=== PATIENT | female | born 1995 | race American Indian/Alaskan Native ===

== ENCOUNTER 2016-08-18 20:29 | Emergency (ER) | payer MEDICAID ==
[2016-08-18 21:57] VITALS: BP 113/80
[2016-08-18 23:26] LABS: Bacteria,Urine 1+ /HPF (Negative); Bilirubin,Urine NEG (Negative); Blood,Urine NEG (Negative); Ketones,Urine NEG (Negative); Leukocyte Esterase,Urine LG (Negative); Nitrite,Urine NEG (Negative); Protein,Urine <15 mg/dL mg/dL (Negative); Urobilinogen,Urine < 2.0 mg/dL (<2.0)
--- NOTE | 2016-08-21 18:37 | ED Elopement Review ---
ED Pt Elopement review - Results review Lab results: Laboratory Tests 08/18/16 Unknown Urine Color Yellow Urine Turbidity Clear Urine pH 7.0 Ur Specific [place] 1.008 Urine Protein <15 mg/dl Urine Glucose (UA) Neg Urine Ketones Neg Urine Blood Neg Urine Nitrite Neg Urine Bilirubin Neg Urine Urobilinogen < 2.0 Ur Leukocyte Esterase Lg Urine WBC (Auto) 25.0 H Urine RBC (Auto) 4.0 U Epithel Cells (Auto) 5.0 Urine Bacteria (Auto) 1+ - Call Back decision Pt Call Back Decision: Pt to F/U with PMD
== END 2016-08-19 10:20 | disposition left against medical advice (07) ==
LOC: ED 20:29
DX: R10.9 Unspecified abdominal pain (principal); Z53.21 Procedure and treatment not carried out due to patient leaving prior to being seen by health care provider
CPT/HCPCS: 81001

== ENCOUNTER 2016-08-29 19:46 | Outpatient (CLI) | payer MEDICAID ==
[2016-08-29] MEDS ORDERED: LACTATED RINGERS 500 ML IV ONE (20:08)
[2016-08-29 20:22] LABS: Bilirubin,Urine NEG (Negative); Blood,Urine NEG (Negative); Ketones,Urine 80 mg/dL (Negative); Leukocyte Esterase,Urine NEG (Negative); Mucus,Urine 1+ /HPF; Nitrite,Urine NEG (Negative); Protein,Urine <15 mg/dL mg/dL (Negative); Urobilinogen,Urine < 2.0 mg/dL (<2.0)
[2016-08-29 21:16] VITALS: BP 109/65
== END 2016-08-29 23:06 | disposition home or self-care (01) ==
LOC: TRG 19:46
PROVIDERS: ATTEND Obstetrics & Gynecology
DX: Z03.89 Encounter for observation for other suspected diseases and conditions ruled out (principal); Z3A.22 22 weeks gestation of pregnancy
CPT/HCPCS: 81001; 96360; J7120

== ENCOUNTER 2016-11-13 10:52 | Inpatient (IN) | payer MEDICAID ==
[2016-11-13 11:46] LABS: Hematocrit 31.1 % (30.3-42.9); Hemoglobin 10.9 gm/dl (10.1-14.3); Mean Corpuscular HGB Conc 35 % (30-34); Mean Corpuscular Hemoglobin 31 pg (28-32); Mean Corpuscular Volume 89 fl (79-97); Platelet Count 125 K/mm3 (140-440); Red Blood Count 3.48 M/mm3 (3.65-5.03)
[2016-11-13 11:51] LABS: Bacteria,Urine 1+ /HPF (Negative); Bilirubin,Urine NEG (Negative); Blood,Urine SM (Negative); Ketones,Urine NEG (Negative); Leukocyte Esterase,Urine MOD (Negative); Mucus,Urine FEW /HPF; Nitrite,Urine NEG (Negative); Urobilinogen,Urine < 2.0 mg/dL (<2.0)
[2016-11-13 11:59] LABS: Protein,Urine >500 mg/dL (Negative)
[2016-11-13 12:10] LABS: Alanine Aminotransferase 7 units/L (7-56); Lactate Dehydrogenase 258 units/L (91-180); Uric Acid 9.2 mg/dL (3.5-7.6)
[2016-11-13] MEDS ORDERED: COLACE PO PRN (12:36)
--- NOTE | 2016-11-13 12:56 | History and Physical Report ---
History of Present Illness Date of examination: 11/13/16 Chief complaint: Elevated BP's in the office History of present illness: Pt is a 21yo BF EDC 01/02/17; EGA 32 6/7 weeks presents from [facility] for evaluation of suspected Preeclampsia. She received care at [facility] since 14 weeks and course has been unremarkable except for elevated BP's today in the office. She denies current headaches or blurred vision. records are available, and GBS is unknown. Past History Past Medical History: no pertinent history Past Surgical History: no surgical history Family/Genetic History: none Social history: no significant social history, single - Obstetrical History Expected Date of Delivery: 01/02/17 Actual Gestation: 32 Week(s) 6 Day(s) : 1 Medications and Allergies Allergies Allergy/AdvReac Type Severity Reaction Status Date / Time No Known Allergies Allergy Verified 08/18/16 21:57 Home Medications Medication Instructions Recorded Confirmed Last Taken Type Vitamin 1 tab PO DAILY 11/13/16 11/13/16 Unknown History Active Meds: Active Medications Acetaminophen (Tylenol) 650 mg PO Q4H PRN PRN Reason: Pain MILD(1-3)/Fever >100.5/SMITH Betamethasone Acet/Betameth SodPhos (Celestone Soluspan) 12 mg IM Q24H NELIA Stop: 11/14/16 13:01 Docusate Sodium (Colace) 100 mg PO Q12H PRN PRN Reason: Constipation Hydralazine HCl (Apresoline) 10 mg IV Q30MIN PRN PRN Reason: Blood Pressure>160/90 Multivitamins/Iron/Calcium ( Vitamin) 1 each PO QDAY NELIA Ondansetron HCl (Zofran) 4 mg IV Q6H PRN PRN Reason: Nausea And Vomiting Review of Systems All systems: negative - Vital Signs Vital signs: Vital Signs Pulse BP 63 169/112 11/13/16 11:13 11/13/16 11:13 Temp Pulse Resp BP Pulse Ox 66 138/95 93 11/13/16 12:30 11/13/16 12:30 11/13/16 12:14 - Physical Exam Breasts: Positive: deferred Cardiovascular: Regular rate Lungs: Positive: Clear to auscultation Abdomen: Positive: normal appearance Genitourinary (Female): Positive: normal external genitalia Uterus: Positive: enlarged Extremities: Positive: edema - Obstetrical FHR: category 1 Uterine Contraction Monitor Mode: External Uterine Contraction Pattern: Regular Uterine Tone Measurement Phase: Contraction Uterine Contraction Intensity: Mild Results Result Diagrams: 11/13/16 11:05 11/13/16 11:05 Abnormal lab results 11/13/16 11/13/16 11/13/16 Range/Units 11:05 11:05 11:05 RBC 3.48 L (3.65-5.03) M/mm3 MCHC 35 H (30-34) % RDW 12.0 L (13.2-15.2) % Plt Count 125 L (140-440) K/mm3 Uric Acid 9.2 H (3.5-7.6) mg/dL Lactate Dehydrogenase 258 H (91-180) units/L Urine WBC (Auto) 7.0 H (0.0-6.0) /HPF All other labs normal. Ultrasound: report reviewed ([facility] 03/03) Assessment and Plan - Patient Problems (1) 32 weeks gestation of Onset Date: 11/13/16 Current Visit: Yes Status: Acute Plan to address problem: A: IUP @ 32 6/7 weeks Suspect Pre-eclampsia contractions P: Admit to L&D for Observation Will obtain PIH labs, 24hr urine for protein Begin Magnesium sulfate for tocolysis Begin steroids (2) Pre-eclampsia Onset Date: 11/13/16 Current Visit: Yes Status: Acute Qualifiers: Trimester: third trimester Qualified Code(s): O14.93 - Unspecified pre- eclampsia, third trimester
[2016-11-13] MEDS: APRESOLINE IV PRN (13:20)
[2016-11-13] MEDS: CELESTONE SOLUSPAN IM SCH (13:25)
[2016-11-13] MEDS ORDERED: MAGNESIUM SULFATE 4GM/100ML 4 GM/100 ML BAG IV ONE (13:58)
[2016-11-13] MEDS ORDERED: MAGNESIUM SULFATE 40GM/1000ML 40 GM/1,000 ML BAG IV SCH (14:00)
[2016-11-13] MEDS ORDERED: LACTATED RINGERS 1,000 ML ONE (15:10)
--- NOTE | 2016-11-13 15:25 | Ultrasound Report ---
BIOPHYSICAL PROFILE: INDICATION: Preeclampsia. COMPARISON: None similar at this institution. TECHNIQUE: Transabdominal ultrasound with Doppler interrogation. 2 - breathing movements 2 - movements 2 - posture and tone 2 - Qualitative amniotic fluid volume 8 - TOTAL SCORE OF POSSIBLE 8 Heart Rate (bpm) 137
[2016-11-13] MEDS ORDERED: SUBLIMAZE IV PRN (20:52)
[2016-11-14] MEDS: ZOFRAN IV PRN ×2 (02:47→08:38)
[2016-11-14] MEDS: LACTATED RINGERS 1,000 ML IV SCH ×3 (04:26→22:07)
--- NOTE | 2016-11-14 08:05 | Admit Criteria Form ---
Admission Criteria Documentation: HYPERTENSIVE DISORDERS OF Clinical Indications for Admission to Inpatient Care (Place 'X' for any and all applicable criteria): Admission is indicated for ANY ONE of the following (1)(2)(3)(4)(5): [ ]I. Eclampsia[A][B] [ ]II. Preeclampsia with severe features (ie, severe preeclampsia) indicated by ANY ONE of the following[B][C]: [ ]a) SBP greater than or equal to 160 mm Hg or DBP greater than or equal to 110 mm Hg on 2 occasions at least 4 hours apart while the patient is at bed rest (unless antihypertensive therapy is initiated before this time) [ ]b) Platelet count less than 100,000/mm3 (100 x109/L) [ ]c) Impaired liver function as indicated by ANY ONE of the following: [ ]i. Elevation of liver enzymes (eg, SGOT, SGPT) to twice normal concentration [ ]ii. Severe persistent right upper quadrant or epigastric pain unresponsive to medication and not accounted for by alternative diagnosis [ ]d) Progressive renal insufficiency indicated by ANY ONE of the following: [ ]i. Serum creatinine concentration greater than 1.1 mg/dL (97 micromoles/L) [ ]ii. Doubling (from baseline) of serum creatinine concentration in the absence of other renal disease [ ]e) Pulmonary edema [X ]f) Cerebral or visual symptoms (eg, headache, Altered mental status, changes in vision) [ ]III. Delivery planned due to nonsevere preeclampsia as indicated by ALL of the following: [ ]a) Nonsevere preeclampsia present as indicated by ALL of the following: [ ]i. Woman at 20 or more weeks' gestation [ ]ii. New-onset SBP greater than or equal to 140 mm Hg but less than 160 mm Hg or DBP greater than or equal to 90 mm Hg but less than 110 mm Hg on 2 occasions at least 4 hours apart [ ]iii. Proteinuria present as indicated by ANY ONE of the following: [ ]A. Urinary protein excretion greater than or equal to 300 mg per 24-hour collection (or this amount extrapolated from a shorter timed collection) [ ]B. Protein/creatinine ratio greater than or equal to 0.3 (measured in mg/dL) [ ]b) Delivery indicated due to ANY ONE of the following: [ ]i. Gestational age of 37 0/7 weeks or more [ ]ii. Gestational age of 34 0/7 weeks to 36 6/7 weeks and ANY ONE of the following: [ ]A. Progressive labor or rupture of membranes [ ]B. Abnormal biophysical profile [ ]C. Suspected abruptio placentae [ ]D. Ultrasound estimate of weight less than 5th percentile [ ]E. Other indication for delivery [ ]IV. Delivery planned due to gestational hypertension[D] because of ANY ONE of the following: [ ]a) Delivery indicated because gestational age of 37 0/7 weeks or more has been reached [ ]b) Gestational age of 34 0/7 weeks to 36 6/7 weeks for which delivery is indicated because of ANY ONE of the following: [ ]i. Progressive labor or rupture of membranes [ ]ii. Abnormal biophysical profile [ ]iii. Suspected abruptio placentae [ ]iv. Ultrasound estimate of weight less than 5th percentile [ ]v. Other indication for delivery [ ]V. Hypertension of any category[E] during with acute end organ damage as indicated by ANY ONE of the following: [ ]a) Hypertensive encephalopathy (eg, Altered mental status that is severe or persistent )(11) [ ]b) Cerebral infarction [ ]c) Intracranial hemorrhage [ ]d) Myocardial ischemia or infarction [ ]e) Pulmonary edema [ ]f) Aortic dissection [ ]g) Seizure [ ]h) Papilledema [ ]i) Microangiopathic hemolytic anemia [ ]j) Visual loss [ ]k) Acute renal failure [ ]) Hypertension during with evidence of compromise as indicated by ANY ONE of the following: [ ]a) Abnormal heart tones [ ]b) Abnormal stress test [ ]c) Abnormal biophysical profile [ X]VII) patient requires inpatient control of blood pressure indicated by (see Hypertensive Disorders of : Observation Care [facility] guideline as appropriate) ALL of the following: [X ]a) SBP is greater than or equal to 160 mm Hg or DBP is greater than or equal to 105 mm Hg [ X]b) Blood pressure cannot be reduced below these levels with outpatient or observation care treatment (eg, oral medications not effective) Extended stay beyond goal length of stay may be needed for : [ ]a) Eclampsia [ ]b) Ongoing compromise [ ]c) Complications of hypertensive disorders of [ ]d) Active comorbidities (eg, heart failure, poorly controlled diabetes, renal insufficiency) [ ]e) Persistent hypertension [ ]f) Delivery planned The original [facility] content created by [facility] has been revised. The portions of the content which have been revised are identified through the use of italic text or in bold, and [facility] has neither reviewed nor approved the modified material. All other unmodified content is copyright [facility]. Please see references footnoted in the original [facility] edition 2016. Admission Criteria Met: Yes
[2016-11-14] MEDS: TYLENOL PO PRN ×2 (09:05→23:30)
[2016-11-14] MEDS: APRESOLINE IV PRN ×2 (10:08→20:58)
--- NOTE | 2016-11-14 12:09 | Progress Note ---
Assessment and Plan - Patient Problems (1) 32 weeks gestation of Onset Date: 11/13/16 Current Visit: Yes Status: Acute (2) Pre-eclampsia Onset Date: 11/13/16 Current Visit: Yes Status: Acute Qualifiers: Trimester: third trimester Qualified Code(s): O14.93 - Unspecified pre- eclampsia, third trimester (3) 33 weeks gestation of Onset Date: 11/14/16 Current Visit: Yes Status: Acute Plan to address problem: A: IUP @ 33 0/7 weeks Preeclampsia - BP's improved on IV hydralazine and magnesium sulfate P: Continue present management Awaiting 24hr urine collection Will D/C magnesium sulfate for now Awaiting APA consultation Repeat labs Subjective - Subjective Date of service: 11/14/16 Principal diagnosis: IUP @ 33 0/7 weeks; Preeclampsia Interval history: Pt is a 21yo BF EDC 01/02/17; EGA 33 0/7 weeks, being evaluated for Preeclampsia, and currently on magnesium sulfate 2gm/hr. She denies headaches, blurred vision or SOB. Patient reports: movement normal, contractions, no new complaints, no loss of fluid, no vaginal bleeding Objective - Vital Signs Vital Signs: Vital Signs - 12hr 11/14/16 11/14/16 11/14/16 00:09 00:14 00:19 Temperature Pulse Rate 85 77 76 Pulse Rate [ From Monitor] Respiratory Rate Blood Pressure Blood Pressure [Right Arm] O2 Sat by Pulse 100 100 100 Oximetry 11/14/16 11/14/16 11/14/16 00:24 00:29 00:34 Temperature Pulse Rate 80 79 79 Pulse Rate [ From Monitor] Respiratory Rate Blood Pressure Blood Pressure [Right Arm] O2 Sat by Pulse 100 100 100 Oximetry 11/14/16 11/14/16 11/14/16 00:39 00:44 00:49 Temperature Pulse Rate 86 80 81 Pulse Rate [ From Monitor] Respiratory Rate Blood Pressure Blood Pressure [Right Arm] O2 Sat by Pulse 100 100 100 Oximetry 11/14/16 11/14/16 11/14/16 00:54 00:59 01:04 Temperature Pulse Rate 81 82 84 Pulse Rate [ From Monitor] Respiratory Rate Blood Pressure Blood Pressure [Right Arm] O2 Sat by Pulse 100 100 100 Oximetry 11/14/16 11/14/16 11/14/16 01:05 01:09 01:14 Temperature 98.4 F Pulse Rate 83 85 Pulse Rate [ From Monitor] Respiratory 20 Rate Blood Pressure Blood Pressure [Right Arm] O2 Sat by Pulse 99 99 Oximetry 11/14/16 11/14/16 11/14/16 01:19 01:24 01:29 Temperature Pulse Rate 81 87 91 H Pulse Rate [ From Monitor] Respiratory Rate Blood Pressure Blood Pressure [Right Arm] O2 Sat by Pulse 99 99 100 Oximetry 11/14/16 11/14/16 11/14/16 01:34 01:39 01:44 Temperature Pulse Rate 94 H 91 H 95 H Pulse Rate [ From Monitor] Respiratory Rate Blood Pressure Blood Pressure [Right Arm] O2 Sat by Pulse 100 100 100 Oximetry 11/14/16 11/14/16 11/14/16 01:49 01:54 01:59 Temperature Pulse Rate 96 H 93 H 96 H Pulse Rate [ From Monitor] Respiratory Rate Blood Pressure Blood Pressure [Right Arm] O2 Sat by Pulse 99 99 99 Oximetry 11/14/16 11/14/16 11/14/16 02:04 02:09 02:14 Temperature Pulse Rate 90 93 H 97 H Pulse Rate [ From Monitor] Respiratory Rate Blood Pressure Blood Pressure [Right Arm] O2 Sat by Pulse 98 97 97 Oximetry 11/14/16 11/14/16 11/14/16 02:19 02:24 02:29 Temperature Pulse Rate 94 H 92 H 93 H Pulse Rate [ From Monitor] Respiratory Rate Blood Pressure Blood Pressure [Right Arm] O2 Sat by Pulse 97 98 97 Oximetry 11/14/16 11/14/16 11/14/16 02:34 02:39 02:44 Temperature Pulse Rate 111 H 100 H 90 Pulse Rate [ From Monitor] Respiratory Rate Blood Pressure Blood Pressure [Right Arm] O2 Sat by Pulse 96 97 97 Oximetry 11/14/16 11/14/16 11/14/16 02:47 02:49 02:54 Temperature Pulse Rate 95 H 93 H 88 Pulse Rate [ From Monitor] Respiratory Rate Blood Pressure 135/84 Blood Pressure [Right Arm] O2 Sat by Pulse 98 98 Oximetry 11/14/16 11/14/16 11/14/16 02:59 03:04 03:09 Temperature Pulse Rate 89 93 H 93 H Pulse Rate [ From Monitor] Respiratory Rate Blood Pressure Blood Pressure [Right Arm] O2 Sat by Pulse 98 97 97 Oximetry 11/14/16 11/14/16 11/14/16 03:14 03:19 03:24 Temperature Pulse Rate 89 87 85 Pulse Rate [ From Monitor] Respiratory Rate Blood Pressure Blood Pressure [Right Arm] O2 Sat by Pulse 97 97 98 Oximetry 11/14/16 11/14/16 11/14/16 03:29 03:34 03:39 Temperature Pulse Rate 85 82 83 Pulse Rate [ From Monitor] Respiratory Rate Blood Pressure Blood Pressure [Right Arm] O2 Sat by Pulse 99 99 99 Oximetry 11/14/16 11/14/16 11/14/16 03:44 03:48 03:49 Temperature Pulse Rate 91 H 96 H 86 Pulse Rate [ From Monitor] Respiratory Rate Blood Pressure 121/82 Blood Pressure [Right Arm] O2 Sat by Pulse 98 98 Oximetry 11/14/16 11/14/16 11/14/16 03:54 03:59 04:04 Temperature Pulse Rate 83 84 99 H Pulse Rate [ From Monitor] Respiratory Rate Blood Pressure Blood Pressure [Right Arm] O2 Sat by Pulse 99 98 97 Oximetry 11/14/16 11/14/16 11/14/16 04:09 04:14 04:19 Temperature Pulse Rate 98 H 91 H 92 H Pulse Rate [ From Monitor] Respiratory Rate Blood Pressure Blood Pressure [Right Arm] O2 Sat by Pulse 96 100 99 Oximetry 11/14/16 11/14/16 11/14/16 04:24 04:29 04:34 Temperature Pulse Rate 89 91 H 91 H Pulse Rate [ From Monitor] Respiratory Rate Blood Pressure Blood Pressure [Right Arm] O2 Sat by Pulse 99 99 98 Oximetry 11/14/16 11/14/16 11/14/16 04:39 04:44 04:48 Temperature Pulse Rate 88 85 90 Pulse Rate [ From Monitor] Respiratory Rate Blood Pressure 135/88 Blood Pressure [Right Arm] O2 Sat by Pulse 97 97 Oximetry 11/14/16 11/14/16 11/14/16 04:49 04:54 04:59 Temperature Pulse Rate 93 H 88 104 H Pulse Rate [ From Monitor] Respiratory Rate Blood Pressure Blood Pressure [Right Arm] O2 Sat by Pulse 98 97 98 Oximetry 11/14/16 11/14/16 11/14/16 05:00 05:04 05:09 Temperature 96.7 F L Pulse Rate 85 84 Pulse Rate [ From Monitor] Respiratory 18 Rate Blood Pressure Blood Pressure [Right Arm] O2 Sat by Pulse 99 99 Oximetry 11/14/16 11/14/16 11/14/16 05:14 05:19 05:24 Temperature Pulse Rate 82 87 83 Pulse Rate [ From Monitor] Respiratory Rate Blood Pressure Blood Pressure [Right Arm] O2 Sat by Pulse 99 99 99 Oximetry 11/14/16 11/14/16 11/14/16 05:29 05:34 05:39 Temperature Pulse Rate 81 85 83 Pulse Rate [ From Monitor] Respiratory Rate Blood Pressure Blood Pressure [Right Arm] O2 Sat by Pulse 100 99 99 Oximetry 11/14/16 11/14/16 11/14/16 05:44 05:48 05:49 Temperature Pulse Rate 93 H 93 H 86 Pulse Rate [ From Monitor] Respiratory Rate Blood Pressure 138/100 Blood Pressure [Right Arm] O2 Sat by Pulse 100 99 Oximetry 11/14/16 11/14/16 11/14/16 05:54 05:58 05:59 Temperature Pulse Rate 88 100 H 99 H Pulse Rate [ From Monitor] Respiratory Rate Blood Pressure Blood Pressure [Right Arm] O2 Sat by Pulse 98 93 98 Oximetry 11/14/16 11/14/16 11/14/16 06:04 06:09 06:14 Temperature Pulse Rate 109 H 98 H 98 H Pulse Rate [ From Monitor] Respiratory Rate Blood Pressure Blood Pressure [Right Arm] O2 Sat by Pulse 98 97 97 Oximetry 11/14/16 11/14/16 11/14/16 06:19 06:24 06:29 Temperature Pulse Rate 96 H 98 H 96 H Pulse Rate [ From Monitor] Respiratory Rate Blood Pressure Blood Pressure [Right Arm] O2 Sat by Pulse 98 97 95 Oximetry 11/14/16 11/14/16 11/14/16 06:34 06:38 06:39 Temperature Pulse Rate 91 H 100 H 99 H Pulse Rate [ From Monitor] Respiratory Rate Blood Pressure Blood Pressure [Right Arm] O2 Sat by Pulse 97 94 97 Oximetry 11/14/16 11/14/16 11/14/16 06:44 06:48 06:49 Temperature Pulse Rate 96 H 95 H 106 H Pulse Rate [ From Monitor] Respiratory Rate Blood Pressure 136/93 Blood Pressure [Right Arm] O2 Sat by Pulse 97 98 Oximetry 11/14/16 11/14/16 11/14/16 06:54 06:59 07:03 Temperature Pulse Rate 99 H 107 H 96 H Pulse Rate [ From Monitor] Respiratory Rate Blood Pressure Blood Pressure [Right Arm] O2 Sat by Pulse 96 97 94 Oximetry 11/14/16 11/14/16 11/14/16 07:04 07:08 07:09 Temperature Pulse Rate 106 H 94 H 98 H Pulse Rate [ From Monitor] Respiratory Rate Blood Pressure Blood Pressure [Right Arm] O2 Sat by Pulse 95 94 95 Oximetry 11/14/16 11/14/16 11/14/16 07:13 07:14 07:19 Temperature Pulse Rate 94 H 95 H 114 H Pulse Rate [ From Monitor] Respiratory Rate Blood Pressure Blood Pressure [Right Arm] O2 Sat by Pulse 94 95 98 Oximetry 11/14/16 11/14/16 11/14/16 07:22 07:24 07:29 Temperature Pulse Rate 96 H 98 H 98 H Pulse Rate [ From Monitor] Respiratory Rate Blood Pressure Blood Pressure [Right Arm] O2 Sat by Pulse 92 95 94 Oximetry 11/14/16 11/14/16 11/14/16 07:34 07:39 07:44 Temperature Pulse Rate 93 H 93 H 94 H Pulse Rate [ From Monitor] Respiratory Rate Blood Pressure Blood Pressure [Right Arm] O2 Sat by Pulse 95 96 96 Oximetry 11/14/16 11/14/16 11/14/16 07:48 07:49 07:54 Temperature Pulse Rate 100 H 97 H 92 H Pulse Rate [ From Monitor] Respiratory Rate Blood Pressure 138/90 Blood Pressure [Right Arm] O2 Sat by Pulse 95 95 Oximetry 11/14/16 11/14/16 11/14/16 07:55 07:59 08:01 Temperature Pulse Rate 95 H 95 H 97 H Pulse Rate [ From Monitor] Respiratory Rate Blood Pressure Blood Pressure [Right Arm] O2 Sat by Pulse 94 95 94 Oximetry 11/14/16 11/14/16 11/14/16 08:04 08:09 08:14 Temperature Pulse Rate 92 H 90 89 Pulse Rate [ From Monitor] Respiratory Rate Blood Pressure Blood Pressure [Right Arm] O2 Sat by Pulse 95 96 96 Oximetry 11/14/16 11/14/16 11/14/16 08:19 08:23 08:24 Temperature Pulse Rate 103 H 98 H 96 H Pulse Rate [ From Monitor] Respiratory Rate Blood Pressure 139/99 Blood Pressure [Right Arm] O2 Sat by Pulse 99 98 Oximetry 11/14/16 11/14/16 11/14/16 08:26 08:29 08:34 Temperature 98.0 F Pulse Rate 98 H 98 H Pulse Rate [ 94 H From Monitor] Respiratory 18 Rate Blood Pressure Blood Pressure 139/99 [Right Arm] O2 Sat by Pulse 98 99 98 Oximetry 11/14/16 11/14/16 11/14/16 08:39 08:44 08:48 Temperature Pulse Rate 99 H 101 H 102 H Pulse Rate [ From Monitor] Respiratory Rate Blood Pressure 141/98 Blood Pressure [Right Arm] O2 Sat by Pulse 98 99 Oximetry 11/14/16 11/14/16 11/14/16 08:49 08:54 08:59 Temperature Pulse Rate 102 H 95 H 101 H Pulse Rate [ From Monitor] Respiratory Rate Blood Pressure Blood Pressure [Right Arm] O2 Sat by Pulse 99 98 98 Oximetry 11/14/16 11/14/16 11/14/16 09:04 09:05 09:09 Temperature Pulse Rate 110 H 96 H Pulse Rate [ From Monitor] Respiratory 18 Rate Blood Pressure Blood Pressure [Right Arm] O2 Sat by Pulse 98 99 Oximetry 11/14/16 11/14/16 11/14/16 09:14 09:19 09:24 Temperature Pulse Rate 95 H 94 H 93 H Pulse Rate [ From Monitor] Respiratory Rate Blood Pressure Blood Pressure [Right Arm] O2 Sat by Pulse 99 100 100 Oximetry 11/14/16 11/14/16 11/14/16 09:29 09:34 09:39 Temperature Pulse Rate 87 90 90 Pulse Rate [ From Monitor] Respiratory Rate Blood Pressure Blood Pressure [Right Arm] O2 Sat by Pulse 100 100 99 Oximetry 11/14/16 11/14/16 11/14/16 09:44 09:48 09:49 Temperature Pulse Rate 88 88 94 H Pulse Rate [ From Monitor] Respiratory Rate Blood Pressure 152/101 Blood Pressure [Right Arm] O2 Sat by Pulse 99 97 Oximetry 11/14/16 11/14/16 11/14/16 09:54 09:59 10:04 Temperature Pulse Rate 92 H 88 90 Pulse Rate [ From Monitor] Respiratory Rate Blood Pressure Blood Pressure [Right Arm] O2 Sat by Pulse 98 100 100 Oximetry 11/14/16 11/14/16 11/14/16 10:08 10:09 10:14 Temperature Pulse Rate 89 92 H 94 H Pulse Rate [ From Monitor] Respiratory Rate Blood Pressure 152/101 Blood Pressure [Right Arm] O2 Sat by Pulse 100 100 Oximetry 11/14/16 11/14/16 11/14/16 10:19 10:24 10:29 Temperature Pulse Rate 101 H 100 H 101 H Pulse Rate [ From Monitor] Respiratory Rate Blood Pressure Blood Pressure [Right Arm] O2 Sat by Pulse 99 100 100 Oximetry 11/14/16 11/14/16 11/14/16 10:34 10:39 10:44 Temperature Pulse Rate 100 H 106 H 106 H Pulse Rate [ From Monitor] Respiratory Rate Blood Pressure Blood Pressure [Right Arm] O2 Sat by Pulse 100 100 100 Oximetry 11/14/16 11/14/16 11/14/16 10:49 10:54 10:59 Temperature Pulse Rate 102 H 105 H 105 H Pulse Rate [ From Monitor] Respiratory Rate Blood Pressure 136/84 Blood Pressure [Right Arm] O2 Sat by Pulse 99 100 100 Oximetry 11/14/16 11/14/16 11/14/16 11:04 11:09 11:14 Temperature Pulse Rate 104 H 103 H 113 H Pulse Rate [ From Monitor] Respiratory Rate Blood Pressure Blood Pressure [Right Arm] O2 Sat by Pulse 99 100 100 Oximetry 11/14/16 11/14/16 11/14/16 11:19 11:24 11:29 Temperature Pulse Rate 100 H 100 H 106 H Pulse Rate [ From Monitor] Respiratory Rate Blood Pressure Blood Pressure [Right Arm] O2 Sat by Pulse 100 100 99 Oximetry 11/14/16 11/14/16 11/14/16 11:34 11:39 11:44 Temperature Pulse Rate 107 H 119 H 113 H Pulse Rate [ From Monitor] Respiratory Rate Blood Pressure Blood Pressure [Right Arm] O2 Sat by Pulse 99 100 99 Oximetry 11/14/16 11/14/16 11/14/16 11:48 11:49 11:54 Temperature Pulse Rate 112 H 107 H 102 H Pulse Rate [ From Monitor] Respiratory Rate Blood Pressure 137/90 Blood Pressure [Right Arm] O2 Sat by Pulse 99 98 Oximetry 11/14/16 11/14/16 11/14/16 11:59 12:04 12:05 Temperature Pulse Rate 105 H 111 H 109 H Pulse Rate [ From Monitor] Respiratory Rate Blood Pressure 132/82 Blood Pressure [Right Arm] O2 Sat by Pulse 99 99 Oximetry - Exam Breasts: deferred Cardiovascular: Regular rate Lungs: Clear to auscultation Abdomen: Present: normal appearance, soft Uterus: Present: normal FHR: category 1 Uterine Contraction Monitor Mode: External - Labs Labs: Abnormal Labs 11/13/16 11/13/16 11/13/16 11:05 11:05 11:05 RBC 3.48 L MCHC 35 H RDW 12.0 L Plt Count 125 L Uric Acid 9.2 H Magnesium Lactate Dehydrogenase 258 H Urine WBC (Auto) 7.0 H 11/14/16 04:10 RBC MCHC RDW Plt Count Uric Acid Magnesium 9.2 H Lactate Dehydrogenase Urine WBC (Auto) Laboratory Results - last 24 hr 11/13/16 11/13/16 11/14/16 11:05 11:05 04:10 Creatinine 0.9 Estimated GFR > 60 Uric Acid 9.2 H Magnesium 9.2 H AST 15 ALT 7 Lactate Dehydrogenase 258 H Blood Type A POSITIVE Antibody Screen Negative
[2016-11-14] MEDS: CELESTONE SOLUSPAN IM SCH (13:56)
[2016-11-14 14:56] LABS: Total Protein 24 Hour,Urine TNR (2-200)
[2016-11-14 14:57] LABS: Total Protein 24 Hour,Urine 4042.5 (2-200)
[2016-11-14 17:48] LABS: Hematocrit 31.5 % (30.3-42.9); Hemoglobin 10.8 gm/dl (10.1-14.3); Mean Corpuscular HGB Conc 34 % (30-34); Mean Corpuscular Hemoglobin 31 pg (28-32); Mean Corpuscular Volume 90 fl (79-97); Platelet Count 145 K/mm3 (140-440); Red Blood Count 3.49 M/mm3 (3.65-5.03); Red Cell Distribution Width 12.7 % (13.2-15.2); White Blood Count 17.7 K/mm3 (4.5-11.0)
[2016-11-14 18:15] LABS: Alanine Aminotransferase 6 units/L (7-56)
[2016-11-14] MEDS ORDERED: CERVIDIL VG ONE (19:47)
[2016-11-14] MEDS ORDERED: STADOL IV PRN (19:48)
[2016-11-14] MEDS ORDERED: MAGNESIUM SULFATE 40GM/1000ML 40 GM/1,000 ML BAG IV SCH (20:00)
[2016-11-15] MEDS: ZOFRAN IV PRN (03:17)
[2016-11-15] MEDS ORDERED: POLYCILLIN/NS 2 GM/100 ML 2 GM/100 ML BAG IV ONE (04:41)
[2016-11-15] MEDS: POLYCILLIN/NS 1 GM/50 ML 1 GM/50 ML BAG IV SCH ×4 (09:15→22:13)
[2016-11-15] MEDS: LACTATED RINGERS 1,000 ML IV SCH ×2 (09:16→22:14)
--- NOTE | 2016-11-15 10:21 | Progress Note ---
Assessment and Plan - Patient Problems (1) 32 weeks gestation of Onset Date: 11/13/16 Current Visit: Yes Status: Acute Plan to address problem: A: IUP @ 33 1/7 weeks Pre-eclampsia - currently on magnesium sulfate 1gm/hr P: Will continue with Cervidel induction of labor (2) Pre-eclampsia Onset Date: 11/13/16 Current Visit: Yes Status: Acute Qualifiers: Trimester: third trimester Qualified Code(s): O14.93 - Unspecified pre- eclampsia, third trimester (3) 33 weeks gestation of Onset Date: 11/14/16 Current Visit: Yes Status: Acute Subjective - Subjective Date of service: 11/15/16 Principal diagnosis: IUP @ 33 1/7 weeks; Preeclampsia Interval history: Pt is a 21yo BF EDC 01/02/17; EGA 33 1/7 weeks, being induced for Preeclampsia. She received cervidel last night, and currently on magnesium sulfate 1gm/hr. She denies headaches, blurred vision or SOB. Patient reports: movement normal, contractions, no new complaints, no loss of fluid, no vaginal bleeding Objective - Vital Signs Vital Signs: Vital Signs - 12hr 11/14/16 11/14/16 11/14/16 22:19 22:24 22:29 Temperature Pulse Rate 109 H 106 H 107 H Pulse Rate [ From Monitor] Respiratory Rate Blood Pressure Blood Pressure [Right Arm] O2 Sat by Pulse 97 97 97 Oximetry 11/14/16 11/14/16 11/14/16 22:34 22:39 22:44 Temperature Pulse Rate 110 H 114 H 113 H Pulse Rate [ From Monitor] Respiratory Rate Blood Pressure Blood Pressure [Right Arm] O2 Sat by Pulse 97 97 96 Oximetry 11/14/16 11/14/16 11/14/16 22:49 22:54 22:59 Temperature Pulse Rate 108 H 108 H 111 H Pulse Rate [ From Monitor] Respiratory Rate Blood Pressure Blood Pressure [Right Arm] O2 Sat by Pulse 96 96 96 Oximetry 11/14/16 11/14/16 11/14/16 23:00 23:04 23:09 Temperature Pulse Rate 111 H 107 H 108 H Pulse Rate [ From Monitor] Respiratory Rate Blood Pressure 131/84 Blood Pressure [Right Arm] O2 Sat by Pulse 95 96 Oximetry 11/14/16 11/14/16 11/14/16 23:11 23:14 23:19 Temperature Pulse Rate 109 H 113 H 112 H Pulse Rate [ From Monitor] Respiratory Rate Blood Pressure Blood Pressure [Right Arm] O2 Sat by Pulse 94 97 96 Oximetry 11/14/16 11/14/16 11/14/16 23:24 23:29 23:30 Temperature Pulse Rate 120 H 117 H Pulse Rate [ From Monitor] Respiratory 20 Rate Blood Pressure 121/76 Blood Pressure [Right Arm] O2 Sat by Pulse 97 97 Oximetry 11/14/16 11/14/16 11/14/16 23:34 23:36 23:39 Temperature 99.7 F H Pulse Rate 108 H 116 H Pulse Rate [ From Monitor] Respiratory 20 Rate Blood Pressure Blood Pressure [Right Arm] O2 Sat by Pulse 96 94 Oximetry 11/14/16 11/14/16 11/14/16 23:43 23:44 23:49 Temperature Pulse Rate 114 H 110 H 107 H Pulse Rate [ From Monitor] Respiratory Rate Blood Pressure Blood Pressure [Right Arm] O2 Sat by Pulse 94 95 94 Oximetry 11/14/16 11/14/16 11/14/16 23:51 23:54 23:57 Temperature Pulse Rate 111 H 109 H 108 H Pulse Rate [ From Monitor] Respiratory Rate Blood Pressure Blood Pressure [Right Arm] O2 Sat by Pulse 94 94 94 Oximetry 11/14/16 11/15/16 11/15/16 23:59 00:00 00:04 Temperature Pulse Rate 108 H 109 H 109 H Pulse Rate [ From Monitor] Respiratory Rate Blood Pressure 127/77 Blood Pressure [Right Arm] O2 Sat by Pulse 96 95 Oximetry 11/15/16 11/15/16 11/15/16 00:09 00:14 00:19 Temperature Pulse Rate 111 H 113 H 117 H Pulse Rate [ From Monitor] Respiratory Rate Blood Pressure Blood Pressure [Right Arm] O2 Sat by Pulse 96 94 95 Oximetry 11/15/16 11/15/16 11/15/16 00:24 00:29 00:32 Temperature Pulse Rate 119 H 102 H 112 H Pulse Rate [ From Monitor] Respiratory Rate Blood Pressure Blood Pressure [Right Arm] O2 Sat by Pulse 96 96 94 Oximetry 11/15/16 11/15/16 11/15/16 00:34 00:39 00:44 Temperature Pulse Rate 107 H 113 H 106 H Pulse Rate [ From Monitor] Respiratory Rate Blood Pressure Blood Pressure [Right Arm] O2 Sat by Pulse 94 95 96 Oximetry 11/15/16 11/15/16 11/15/16 00:49 00:54 00:59 Temperature Pulse Rate 111 H 107 H 104 H Pulse Rate [ From Monitor] Respiratory Rate Blood Pressure Blood Pressure [Right Arm] O2 Sat by Pulse 96 96 96 Oximetry 11/15/16 11/15/16 11/15/16 01:00 01:04 01:09 Temperature Pulse Rate 110 H 103 H 102 H Pulse Rate [ From Monitor] Respiratory Rate Blood Pressure 127/84 Blood Pressure [Right Arm] O2 Sat by Pulse 96 96 Oximetry 11/15/16 11/15/16 11/15/16 01:14 01:19 01:24 Temperature Pulse Rate 102 H 104 H 104 H Pulse Rate [ From Monitor] Respiratory Rate Blood Pressure Blood Pressure [Right Arm] O2 Sat by Pulse 96 95 97 Oximetry 11/15/16 11/15/16 11/15/16 01:29 01:34 01:39 Temperature Pulse Rate 102 H 118 H 102 H Pulse Rate [ From Monitor] Respiratory Rate Blood Pressure Blood Pressure [Right Arm] O2 Sat by Pulse 96 97 96 Oximetry 11/15/16 11/15/16 11/15/16 01:44 01:49 01:54 Temperature Pulse Rate 112 H 104 H 103 H Pulse Rate [ From Monitor] Respiratory 18 Rate Blood Pressure Blood Pressure [Right Arm] O2 Sat by Pulse 97 96 96 Oximetry 11/15/16 11/15/16 11/15/16 01:59 02:01 02:04 Temperature Pulse Rate 112 H 110 H 109 H Pulse Rate [ From Monitor] Respiratory Rate Blood Pressure 120/78 Blood Pressure [Right Arm] O2 Sat by Pulse 97 96 Oximetry 11/15/16 11/15/16 11/15/16 02:09 02:14 02:19 Temperature Pulse Rate 105 H 105 H 103 H Pulse Rate [ From Monitor] Respiratory Rate Blood Pressure Blood Pressure [Right Arm] O2 Sat by Pulse 96 96 96 Oximetry 11/15/16 11/15/16 11/15/16 02:24 02:29 02:34 Temperature Pulse Rate 111 H 108 H 111 H Pulse Rate [ From Monitor] Respiratory Rate Blood Pressure Blood Pressure [Right Arm] O2 Sat by Pulse 97 96 97 Oximetry 11/15/16 11/15/16 11/15/16 02:39 02:44 02:49 Temperature Pulse Rate 107 H 116 H 105 H Pulse Rate [ From Monitor] Respiratory Rate Blood Pressure Blood Pressure [Right Arm] O2 Sat by Pulse 96 96 97 Oximetry 11/15/16 11/15/16 11/15/16 02:54 02:59 03:00 Temperature Pulse Rate 101 H 102 H 102 H Pulse Rate [ From Monitor] Respiratory Rate Blood Pressure 126/86 Blood Pressure [Right Arm] O2 Sat by Pulse 97 97 Oximetry 11/15/16 11/15/16 11/15/16 03:04 03:05 03:09 Temperature 98.5 F Pulse Rate 109 H 104 H Pulse Rate [ From Monitor] Respiratory 20 Rate Blood Pressure Blood Pressure [Right Arm] O2 Sat by Pulse 97 97 Oximetry 11/15/16 11/15/16 11/15/16 03:14 03:19 04:19 Temperature Pulse Rate 124 H 109 H 94 H Pulse Rate [ From Monitor] Respiratory Rate Blood Pressure 124/86 Blood Pressure [Right Arm] O2 Sat by Pulse 96 98 98 Oximetry 11/15/16 11/15/16 11/15/16 04:24 04:29 04:34 Temperature Pulse Rate 93 H 91 H 97 H Pulse Rate [ From Monitor] Respiratory Rate Blood Pressure Blood Pressure [Right Arm] O2 Sat by Pulse 99 97 97 Oximetry 11/15/16 11/15/16 11/15/16 04:39 04:44 04:49 Temperature Pulse Rate 98 H 90 98 H Pulse Rate [ From Monitor] Respiratory Rate Blood Pressure Blood Pressure [Right Arm] O2 Sat by Pulse 97 97 98 Oximetry 11/15/16 11/15/16 11/15/16 04:59 05:00 05:03 Temperature Pulse Rate 107 H 101 H Pulse Rate [ From Monitor] Respiratory 20 Rate Blood Pressure 131/80 Blood Pressure [Right Arm] O2 Sat by Pulse 98 Oximetry 11/15/16 11/15/16 11/15/16 05:04 05:09 05:14 Temperature Pulse Rate 107 H 94 H 94 H Pulse Rate [ From Monitor] Respiratory Rate Blood Pressure Blood Pressure [Right Arm] O2 Sat by Pulse 97 97 96 Oximetry 11/15/16 11/15/16 11/15/16 05:19 05:24 05:29 Temperature Pulse Rate 89 91 H 85 Pulse Rate [ From Monitor] Respiratory Rate Blood Pressure Blood Pressure [Right Arm] O2 Sat by Pulse 97 96 96 Oximetry 11/15/16 11/15/16 11/15/16 05:34 05:39 05:44 Temperature Pulse Rate 106 H 91 H 87 Pulse Rate [ From Monitor] Respiratory Rate Blood Pressure Blood Pressure [Right Arm] O2 Sat by Pulse 97 96 96 Oximetry 11/15/16 11/15/16 11/15/16 05:49 05:54 05:59 Temperature Pulse Rate 86 85 85 Pulse Rate [ From Monitor] Respiratory Rate Blood Pressure Blood Pressure [Right Arm] O2 Sat by Pulse 96 96 96 Oximetry 11/15/16 11/15/16 11/15/16 06:00 06:04 06:08 Temperature Pulse Rate 85 98 H 101 H Pulse Rate [ From Monitor] Respiratory Rate Blood Pressure 118/71 Blood Pressure [Right Arm] O2 Sat by Pulse 94 95 94 Oximetry 11/15/16 11/15/16 11/15/16 06:09 06:14 06:19 Temperature Pulse Rate 109 H 102 H 105 H Pulse Rate [ From Monitor] Respiratory Rate Blood Pressure Blood Pressure [Right Arm] O2 Sat by Pulse 98 97 97 Oximetry 11/15/16 11/15/16 11/15/16 06:24 06:29 06:34 Temperature Pulse Rate 102 H 103 H 105 H Pulse Rate [ From Monitor] Respiratory Rate Blood Pressure Blood Pressure [Right Arm] O2 Sat by Pulse 97 96 98 Oximetry 11/15/16 11/15/16 11/15/16 06:39 06:40 06:44 Temperature Pulse Rate 111 H 99 H Pulse Rate [ From Monitor] Respiratory 18 Rate Blood Pressure Blood Pressure [Right Arm] O2 Sat by Pulse 97 97 Oximetry 11/15/16 11/15/16 11/15/16 06:49 06:54 06:59 Temperature Pulse Rate 99 H 99 H 98 H Pulse Rate [ From Monitor] Respiratory Rate Blood Pressure Blood Pressure [Right Arm] O2 Sat by Pulse 97 97 97 Oximetry 11/15/16 11/15/16 11/15/16 07:00 07:04 07:09 Temperature Pulse Rate 96 H 93 H 93 H Pulse Rate [ From Monitor] Respiratory Rate Blood Pressure 126/79 Blood Pressure [Right Arm] O2 Sat by Pulse 97 97 Oximetry 11/15/16 11/15/16 11/15/16 07:14 07:19 07:24 Temperature Pulse Rate 93 H 90 91 H Pulse Rate [ From Monitor] Respiratory Rate Blood Pressure Blood Pressure [Right Arm] O2 Sat by Pulse 98 97 97 Oximetry 11/15/16 11/15/16 11/15/16 07:29 07:34 07:39 Temperature Pulse Rate 95 H 91 H 90 Pulse Rate [ From Monitor] Respiratory Rate Blood Pressure Blood Pressure [Right Arm] O2 Sat by Pulse 98 97 98 Oximetry 11/15/16 11/15/16 11/15/16 07:44 07:49 07:54 Temperature Pulse Rate 90 90 92 H Pulse Rate [ From Monitor] Respiratory Rate Blood Pressure Blood Pressure [Right Arm] O2 Sat by Pulse 98 97 98 Oximetry 11/15/16 11/15/16 11/15/16 07:59 08:00 08:04 Temperature Pulse Rate 95 H 92 H 100 H Pulse Rate [ From Monitor] Respiratory Rate Blood Pressure 145/86 Blood Pressure [Right Arm] O2 Sat by Pulse 98 98 Oximetry 11/15/16 11/15/16 11/15/16 08:09 08:14 08:19 Temperature Pulse Rate 94 H 94 H 100 H Pulse Rate [ From Monitor] Respiratory Rate Blood Pressure Blood Pressure [Right Arm] O2 Sat by Pulse 97 97 98 Oximetry 11/15/16 11/15/16 11/15/16 08:24 08:29 08:34 Temperature Pulse Rate 96 H 95 H 89 Pulse Rate [ From Monitor] Respiratory Rate Blood Pressure Blood Pressure [Right Arm] O2 Sat by Pulse 97 96 97 Oximetry 11/15/16 11/15/16 11/15/16 08:39 08:44 08:49 Temperature Pulse Rate 91 H 89 88 Pulse Rate [ From Monitor] Respiratory Rate Blood Pressure Blood Pressure [Right Arm] O2 Sat by Pulse 97 97 97 Oximetry 11/15/16 11/15/16 11/15/16 08:54 08:59 09:00 Temperature Pulse Rate 97 H 89 86 Pulse Rate [ From Monitor] Respiratory Rate Blood Pressure 139/86 Blood Pressure [Right Arm] O2 Sat by Pulse 97 97 Oximetry 11/15/16 11/15/16 11/15/16 09:04 09:09 09:14 Temperature Pulse Rate 84 86 86 Pulse Rate [ From Monitor] Respiratory Rate Blood Pressure Blood Pressure [Right Arm] O2 Sat by Pulse 97 97 96 Oximetry 11/15/16 11/15/16 11/15/16 09:19 09:22 09:23 Temperature 97.4 F L Pulse Rate 86 86 Pulse Rate [ 88 From Monitor] Respiratory 18 Rate Blood Pressure 126/77 Blood Pressure 127/77 [Right Arm] O2 Sat by Pulse 96 96 Oximetry 11/15/16 11/15/16 11/15/16 09:24 09:29 09:34 Temperature Pulse Rate 100 H 84 87 Pulse Rate [ From Monitor] Respiratory Rate Blood Pressure Blood Pressure [Right Arm] O2 Sat by Pulse 98 97 97 Oximetry 11/15/16 11/15/16 11/15/16 09:39 09:44 09:49 Temperature Pulse Rate 101 H 85 86 Pulse Rate [ From Monitor] Respiratory Rate Blood Pressure Blood Pressure [Right Arm] O2 Sat by Pulse 97 97 97 Oximetry 11/15/16 11/15/16 11/15/16 09:54 09:59 10:00 Temperature Pulse Rate 85 87 86 Pulse Rate [ From Monitor] Respiratory Rate Blood Pressure 133/82 Blood Pressure [Right Arm] O2 Sat by Pulse 97 97 Oximetry 11/15/16 11/15/16 10:04 10:09 Temperature Pulse Rate 86 85 Pulse Rate [ From Monitor] Respiratory Rate Blood Pressure Blood Pressure [Right Arm] O2 Sat by Pulse 96 97 Oximetry - Exam Cardiovascular: Regular rate Lungs: Clear to auscultation Abdomen: Present: normal appearance, soft Uterus: Present: normal FHR: category 1 Uterine Contraction Monitor Mode: External Cervical Dilatation: 0.5 Cervical Effacement Percentage: 50 station: -2 Uterine Contraction Pattern: Irregular Uterine Contraction Intensity: Mild - Labs Labs: Abnormal Labs 11/13/16 11/13/16 11/13/16 11:05 11:05 11:05 WBC RBC 3.48 L MCHC 35 H RDW 12.0 L Plt Count 125 L Uric Acid 9.2 H Magnesium ALT Lactate Dehydrogenase 258 H Urine WBC (Auto) 7.0 H Urine Creatinine Ur Total Protein 24 Hr Urine Total Protein 11/14/16 11/14/16 11/14/16 04:10 17:35 17:35 WBC 17.7 H RBC 3.49 L MCHC RDW 12.7 L Plt Count Uric Acid Magnesium 9.2 H 6.0 H ALT 5 L Lactate Dehydrogenase Urine WBC (Auto) Urine Creatinine Ur Total Protein 24 Hr Urine Total Protein 11/14/16 11/14/16 11/15/16 17:35 Unknown 00:35 WBC RBC MCHC RDW Plt Count Uric Acid Magnesium 5.8 H ALT 6 L Lactate Dehydrogenase Urine WBC (Auto) Urine Creatinine 92.3 H Ur Total Protein 24 Hr 4042.50 H Urine Total Protein 385 H 11/15/16 06:30 WBC RBC MCHC RDW Plt Count Uric Acid Magnesium 6.4 H ALT Lactate Dehydrogenase Urine WBC (Auto) Urine Creatinine Ur Total Protein 24 Hr Urine Total Protein Laboratory Results - last 24 hr 11/13/16 11/14/16 11/14/16 12:51 17:35 17:35 WBC 17.7 H RBC 3.49 L Hgb 10.8 Hct 31.5 MCV 90 MCH 31 MCHC 34 RDW 12.7 L Plt Count 145 Magnesium 6.0 H AST ALT 5 L Urine Total Volume TNR Urine Creatinine TNR Ur Creatinine 24 Hour TNR Ur Total Protein 24 Hr TNR Urine Total Protein TNR 11/14/16 11/14/16 11/15/16 17:35 Unknown 00:35 WBC RBC Hgb Hct MCV MCH MCHC RDW Plt Count Magnesium 5.8 H AST 15 ALT 6 L Urine Total Volume 1050 Urine Creatinine 92.3 H Ur Creatinine 24 Hour 1.0 Ur Total Protein 24 Hr 4042.50 H Urine Total Protein 385 H 11/15/16 06:30 WBC RBC Hgb Hct MCV MCH MCHC RDW Plt Count Magnesium 6.4 H AST ALT Urine Total Volume Urine Creatinine Ur Creatinine 24 Hour Ur Total Protein 24 Hr Urine Total Protein
[2016-11-15] MEDS ORDERED: CERVIDIL VG ONE (12:00)
[2016-11-15] MEDS: PRENATAL VITAMIN PO SCH (12:59)
[2016-11-15] MEDS ORDERED: LOMOTIL PO PRN (19:32)
[2016-11-15] MEDS: APRESOLINE IV PRN (22:00)
[2016-11-16] MEDS: POLYCILLIN/NS 1 GM/50 ML 1 GM/50 ML BAG IV SCH ×4 (01:00→12:44)
[2016-11-16] MEDS: PITOCin/NS 30 UNIT/500ML 30 UNITS/500 ML BAG IV SCH ×4 (07:18→09:01)
[2016-11-16] MEDS: LACTATED RINGERS 1,000 ML IV SCH (08:59)
--- NOTE | 2016-11-16 10:54 | Progress Note ---
Assessment and Plan - Patient Problems (1) 32 weeks gestation of Onset Date: 11/13/16 Current Visit: Yes Status: Acute (2) Pre-eclampsia Onset Date: 11/13/16 Current Visit: Yes Status: Acute Qualifiers: Trimester: third trimester Qualified Code(s): O14.93 - Unspecified pre- eclampsia, third trimester (3) 33 weeks gestation of Onset Date: 11/14/16 Current Visit: Yes Status: Acute Plan to address problem: A: IUP @ 33 2/7 weeks Preeclampsia - BP's improved on IV hydralazine and magnesium sulfate P: Continue with pitocin induction of labor Subjective - Subjective Date of service: 11/16/16 Principal diagnosis: IUP @ 33 2/7 weeks; Preeclampsia Interval history: Pt is a 21yo BF EDC 01/02/17; EGA 33 2/7 weeks, being induced for Preeclampsia. She received cervidel last night, and currently on pitocin 14mu/ min and ana q 3-4 mins. She denies headaches, blurred vision or SOB. Patient reports: movement normal, contractions, no new complaints, no loss of fluid, no vaginal bleeding Objective - Vital Signs Vital Signs: Vital Signs - 12hr 11/15/16 11/15/16 11/15/16 22:53 22:58 23:00 Temperature Pulse Rate 108 H 99 H 100 H Pulse Rate [ From Monitor] Respiratory Rate Blood Pressure 134/90 Blood Pressure [Right Arm] O2 Sat by Pulse 96 97 Oximetry 11/15/16 11/15/16 11/15/16 23:03 23:08 23:13 Temperature Pulse Rate 95 H 94 H 100 H Pulse Rate [ From Monitor] Respiratory Rate Blood Pressure Blood Pressure [Right Arm] O2 Sat by Pulse 97 97 97 Oximetry 11/15/16 11/15/16 11/15/16 23:18 23:23 23:28 Temperature Pulse Rate 98 H 100 H 99 H Pulse Rate [ From Monitor] Respiratory Rate Blood Pressure Blood Pressure [Right Arm] O2 Sat by Pulse 97 97 97 Oximetry 11/15/16 11/15/16 11/15/16 23:33 23:38 23:43 Temperature Pulse Rate 98 H 95 H 98 H Pulse Rate [ From Monitor] Respiratory Rate Blood Pressure Blood Pressure [Right Arm] O2 Sat by Pulse 97 96 97 Oximetry 11/15/16 11/15/1611/15/17 23:48 23:53 23:58 Temperature Pulse Rate 99 H 96 H 94 H Pulse Rate [ From Monitor] Respiratory Rate Blood Pressure Blood Pressure [Right Arm] O2 Sat by Pulse 97 97 97 Oximetry 11/16/16 11/16/16 11/16/16 00:01 00:03 00:16 Temperature Pulse Rate 100 H 100 H 101 H Pulse Rate [ From Monitor] Respiratory Rate Blood Pressure 148/109 145/95 Blood Pressure [Right Arm] O2 Sat by Pulse 97 Oximetry 11/16/16 11/16/16 11/16/16 01:01 02:00 03:00 Temperature Pulse Rate 95 H 111 H 91 H Pulse Rate [ From Monitor] Respiratory Rate Blood Pressure 140/92 137/85 127/85 Blood Pressure [Right Arm] O2 Sat by Pulse Oximetry 11/16/16 11/16/16 11/16/16 04:00 05:01 06:00 Temperature Pulse Rate 93 H 93 H 90 Pulse Rate [ From Monitor] Respiratory Rate Blood Pressure 111/60 120/61 113/66 Blood Pressure [Right Arm] O2 Sat by Pulse Oximetry 11/16/16 11/16/16 11/16/16 07:01 07:29 07:48 Temperature 98.2 F Pulse Rate 77 85 Pulse Rate [ 85 From Monitor] Respiratory 18 Rate Blood Pressure 143/98 143/93 Blood Pressure 143/93 [Right Arm] O2 Sat by Pulse 96 Oximetry 11/16/16 11/16/16 11/16/16 08:01 09:01 09:30 Temperature Pulse Rate 83 82 78 Pulse Rate [ From Monitor] Respiratory Rate Blood Pressure 135/88 138/93 143/94 Blood Pressure [Right Arm] O2 Sat by Pulse 98 Oximetry 11/16/16 11/16/16 11/16/16 09:35 09:40 09:45 Temperature Pulse Rate 80 78 77 Pulse Rate [ From Monitor] Respiratory Rate Blood Pressure Blood Pressure [Right Arm] O2 Sat by Pulse 98 98 98 Oximetry 11/16/16 11/16/16 11/16/16 09:50 09:55 10:00 Temperature Pulse Rate 83 81 80 Pulse Rate [ From Monitor] Respiratory Rate Blood Pressure Blood Pressure [Right Arm] O2 Sat by Pulse 99 98 98 Oximetry 11/16/16 11/16/16 11/16/16 10:01 10:05 10:10 Temperature Pulse Rate 76 79 72 Pulse Rate [ From Monitor] Respiratory Rate Blood Pressure 146/95 Blood Pressure [Right Arm] O2 Sat by Pulse 99 99 Oximetry 11/16/16 11/16/16 11/16/16 10:15 10:20 10:25 Temperature Pulse Rate 73 71 73 Pulse Rate [ From Monitor] Respiratory Rate Blood Pressure Blood Pressure [Right Arm] O2 Sat by Pulse 97 98 97 Oximetry 11/16/16 11/16/16 11/16/16 10:30 10:35 10:40 Temperature Pulse Rate 75 75 73 Pulse Rate [ From Monitor] Respiratory Rate Blood Pressure Blood Pressure [Right Arm] O2 Sat by Pulse 97 98 97 Oximetry 11/16/16 10:45 Temperature Pulse Rate 74 Pulse Rate [ From Monitor] Respiratory Rate Blood Pressure Blood Pressure [Right Arm] O2 Sat by Pulse 96 Oximetry - Exam Abdomen: Present: normal appearance, soft Uterus: Present: normal FHR: category 1 Uterine Contraction Monitor Mode: External Cervical Dilatation: 1.5 Cervical Effacement Percentage: 60 station: -2 Uterine Contraction Pattern: Regular Uterine Tone Measurement Phase: Contraction Uterine Contraction Intensity: Mild - Labs Labs: Abnormal Labs 11/13/16 11/13/16 11/13/16 11:05 11:05 11:05 WBC RBC 3.48 L MCHC 35 H RDW 12.0 L Plt Count 125 L Uric Acid 9.2 H Magnesium ALT Lactate Dehydrogenase 258 H Urine WBC (Auto) 7.0 H Urine Creatinine Ur Total Protein 24 Hr Urine Total Protein 11/14/16 11/14/16 11/14/16 04:10 17:35 17:35 WBC 17.7 H RBC 3.49 L MCHC RDW 12.7 L Plt Count Uric Acid Magnesium 9.2 H 6.0 H ALT 5 L Lactate Dehydrogenase Urine WBC (Auto) Urine Creatinine Ur Total Protein 24 Hr Urine Total Protein 11/14/16 11/14/16 11/15/16 17:35 Unknown 00:35 WBC RBC MCHC RDW Plt Count Uric Acid Magnesium 5.8 H ALT 6 L Lactate Dehydrogenase Urine WBC (Auto) Urine Creatinine 92.3 H Ur Total Protein 24 Hr 4042.50 H Urine Total Protein 385 H 11/15/16 11/15/16 11/15/16 06:30 13:38 18:21 WBC RBC MCHC RDW Plt Count Uric Acid Magnesium 6.4 H 6.8 H 7.1 H ALT Lactate Dehydrogenase Urine WBC (Auto) Urine Creatinine Ur Total Protein 24 Hr Urine Total Protein 11/16/16 00:38 WBC RBC MCHC RDW Plt Count Uric Acid Magnesium 7.0 H ALT Lactate Dehydrogenase Urine WBC (Auto) Urine Creatinine Ur Total Protein 24 Hr Urine Total Protein Laboratory Results - last 24 hr 11/15/16 11/15/16 11/16/16 13:38 18:21 00:38 Magnesium 6.8 H 7.1 H 7.0 H
[2016-11-16] MEDS ORDERED: fentaNYL-BUPIV 2 MCG/ML-0.125% 200 MCG/100 ML BAG EPIDURAL ONE (11:44)
[2016-11-16] MEDS ORDERED: ePHEDrine SULFATE IV PRN (11:54)
[2016-11-16] MEDS ORDERED: NARCAN 2 MG/2 ML IV PRN (11:54)
--- NOTE | 2016-11-16 11:54 | Anesthesia Consultation ---
Anesthesia Consult and Med Hx Date of service: 11/16/16 - Airway Anesthetic Teeth Evaluation: Good ROM Head & Neck: Adequate Mental/Hyoid Distance: Adequate Mallampati Class: Class II Intubation Access Assessment: Probably Good - Pulmonary Exam CTA: Yes - Cardiac Exam Cardiac Exam: RRR - Pre-Operative Health Status ASA Pre-Surgery Classification: ASA2 Proposed Anesthetic Plan: Epidural - Pulmonary Hx Asthma: Yes (albuterol PRN) COPD: No Hx Pneumonia: No - Cardiovascular System Hx Hypertension: No - Central Nervous System Hx Seizures: No Hx Psychiatric Problems: No - Endocrine Hx Renal Disease: No Hx End Stage Renal Disease: No Hx Hypothyroidism: No Hx Hyperthyroidism: No - Hematic Hx Anemia: No Hx Sickle Cell Disease: No - Other Systems Hx Alcohol Use: No
[2016-11-16] MEDS ORDERED: fentaNYL-BUPIV 2 MCG/ML-0.125% 200 MCG/100 ML BAG EPIDURAL SCH (12:00)
[2016-11-16] MEDS ORDERED: PITOCin/NS 20 UNIT/1000ML DRIP 20,000 MILLIUNITS/1,000 ML BAG IV ONE (18:29)
[2016-11-16] MEDS ORDERED: MAGNESIUM SULFATE 40GM/1000ML 40 GM/1,000 ML BAG IV ONE (18:58)
--- NOTE | 2016-11-16 19:02 | Procedure Note ---
OB Delivery Note - Delivery Date of Delivery: 11/16/16 Surgeon: LENARD NEIL Estimated blood loss: 100cc - Vaginal Delivery presentation: vertex Delivery position: OA Intrapartum events: labor-<37 weeks, PROM->1hr before delivery, preeclampsia, prolonged labor- > = 20hr Delivery induction: cervidil Delivery augmentation: pitocin Delivery monitor: external FHT, external uterine Route of delivery: Delivery placenta: spontaneous Delivery cord: 3 umbilical vessels Episiotomy: none Delivery laceration: none Anesthesia: epidural Delivery comments: delivered OA and placed on Mom's chest for [id number] and delayed cord clamping. Peds /RT in attendance. - A at 1 minute: 5 at 5 minutes: 9 Gender: Male ([id number])
[2016-11-16] MEDS ORDERED: LANSINOH TP PRN (19:05)
[2016-11-16] MEDS ORDERED: NORCO 5/325 PO PRN (19:05)
[2016-11-16] MEDS ORDERED: TUCKS PAD TP PRN (19:05)
[2016-11-16] MEDS ORDERED: DERMOPLAST TP PRN (19:05)
[2016-11-16] MEDS ORDERED: MILK OF MAGNESIA PO PRN (19:05)
[2016-11-16] MEDS ORDERED: TYLENOL PO PRN (19:05)
[2016-11-16] MEDS ORDERED: PHENERGAN PR PRN (19:05)
[2016-11-16] MEDS ORDERED: ZOFRAN IV PRN (19:05)
[2016-11-16] MEDS ORDERED: PHENERGAN PO PRN (19:05)
[2016-11-16] MEDS ORDERED: BENADRYL PO PRN (19:05)
[2016-11-16] MEDS ORDERED: DULCOLAX PR PRN (19:05)
[2016-11-16] MEDS: PITOCin/NS 20 UNIT/1000ML DRIP 20 UNITS/1,000 ML BAG IV SCH ×2 (19:55→20:42)
[2016-11-16] MEDS ORDERED: SODIUM CHLORIDE FLUSH SYRINGE 10 ML IV NR (20:00)
[2016-11-16] MEDS: MOTRIN PO SCH (20:27)
[2016-11-16] MEDS: APRESOLINE IV PRN (20:28)
[2016-11-16] MEDS ORDERED: MAGNESIUM SULFATE 40GM/1000ML 40 GM/1,000 ML BAG IV SCH (21:21)
[2016-11-17] MEDS: MOTRIN PO SCH ×2 (02:00→18:16)
[2016-11-17] MEDS: FEOSOL PO SCH ×3 (05:12→22:14)
[2016-11-17] MEDS ORDERED: BOOSTRIX IM ONE (06:05)
[2016-11-17] MEDS ORDERED: LACTATED RINGERS 1,000 ML IV SCH (07:00)
[2016-11-17 08:16] LABS: Hematocrit 28.6 % (30.3-42.9); Hemoglobin 9.5 gm/dl (10.1-14.3)
[2016-11-17] MEDS: PRENATAL VITAMIN PO SCH ×2 (09:47→09:48)
[2016-11-17] MEDS: NORMODYNE PO SCH ×2 (09:48→22:15)
--- NOTE | 2016-11-17 10:04 | Progress Note ---
Assessment and Plan PPD# 1 s/p -On Mag w/ Pre-E -BP elevated this AM to ~ 150's/90's P: -Labetalol 200 mg twice a day -We'll discontinue magnesium if urine output adequate and blood pressure better controlled -Anticipate discharge in 24-48 hours - Patient Problems (1) (normal spontaneous vaginal delivery) Current Visit: Yes Status: Acute (2) Pre-eclampsia Onset Date: 11/13/16 Current Visit: Yes Status: Acute Qualifiers: Trimester: third trimester Qualified Code(s): O14.93 - Unspecified pre- eclampsia, third trimester Subjective - Subjective Date of service: 11/17/16 Principal diagnosis: PPD # 1, Preeclampsia @ 33 2/7 weeks Interval history: Patient seen and examined, stable doing well. No shortness of breath or chest pain, no fever or chills, no headaches, epigastric pain or scotomata. Presently still on magnesium at 1 g per hour, BP is elevated but less than severe range. Patient reports: appetite normal, pain well controlled, no nauseated : in NICU Objective - Vital Signs Latest vital signs: Vital Signs Temp Pulse Pulse Resp BP BP Pulse Ox 11/17/16 09:48 75 150/98 11/17/16 08:05 98.4 F 73 20 154/93 11/17/16 06:30 98.6 F 83 18 151/89 11/17/16 04:30 98.6 F 68 18 141/91 11/17/16 03:00 98.6 F 77 16 128/84 11/17/16 02:00 18 11/17/16 01:30 98.6 F 83 16 153/97 11/17/16 00:00 98.6 F 77 16 144/90 11/16/16 21:30 98.6 F 86 16 149/86 11/16/16 21:27 18 11/16/16 20:42 98 H 138/88 11/16/16 20:41 101 H 97 11/16/16 20:37 99 H 146/89 11/16/16 20:36 97 H 100 11/16/16 20:32 94 H 154/93 11/16/16 20:31 86 98 11/16/16 20:28 82 160/103 11/16/16 20:27 80 160/103 11/16/16 20:26 79 99 11/16/16 20:21 74 97 11/16/16 20:16 73 97 11/16/16 20:15 98.1 F 18 11/16/16 20:12 77 159/100 11/16/16 20:11 78 97 11/16/16 20:06 76 97 11/16/16 20:01 86 98 11/16/16 19:57 80 161/100 11/16/16 19:56 83 98 11/16/16 19:51 81 98 11/16/16 19:46 84 167/104 99 11/16/16 19:41 84 96 11/16/16 19:36 82 97 11/16/16 19:31 83 98 11/16/16 19:27 82 156/99 11/16/16 19:26 82 98 11/16/16 19:21 81 98 11/16/16 19:16 86 98 11/16/16 19:12 86 159/99 11/16/16 19:11 85 99 11/16/16 19:06 89 97 11/16/16 19:01 87 99 11/16/16 19:00 95 H 137/101 11/16/16 18:56 94 H 98 11/16/16 18:51 114 H 97 11/16/16 18:46 77 98 11/16/16 18:41 120 H 94 11/16/16 18:36 105 H 99 11/16/16 18:31 100 H 99 11/16/16 18:26 99 H 97 11/16/16 18:21 92 H 96 11/16/16 18:19 96 H 94 11/16/16 18:16 95 H 98 11/16/16 18:11 98 H 98 11/16/16 18:08 79 94 11/16/16 18:06 90 96 11/16/16 18:01 85 96 11/16/16 18:00 88 170/101 11/16/16 17:55 83 98 11/16/16 17:50 86 96 11/16/16 17:45 79 97 11/16/16 17:40 77 98 17 17:35 81 98 17 17:30 80 97 11/16/16 17:25 81 97 11/16/16 17:20 98 H 97 11/16/16 17:15 78 97 11/16/16 17:10 78 96 11/16/16 17:08 79 94 11/16/16 17:05 78 96 11/16/16 17:01 85 161/97 94 11/16/16 17:00 92 H 99 11/16/16 16:55 100 H 99 11/16/16 16:50 80 99 11/16/16 16:45 100 H 98 11/16/16 16:42 80 91 11/16/16 16:40 77 95 11/16/16 16:36 89 91 11/16/16 16:35 90 98 11/16/16 16:30 99 H 98 11/16/16 16:25 79 98 11/16/16 16:20 76 95 11/16/16 16:15 77 95 11/16/16 16:10 87 95 11/16/16 16:05 79 97 11/16/16 16:00 98.9 F 88 16 153/96 94 11/16/16 15:55 76 96 11/16/16 15:50 80 98 11/16/16 15:45 83 96 11/16/16 15:40 87 98 11/16/16 15:39 79 92 11/16/16 15:35 89 98 11/16/16 15:32 83 90 11/16/16 15:30 77 97 11/16/16 15:25 87 95 11/16/16 15:20 88 97 11/16/16 15:16 81 94 11/16/16 15:15 81 95 11/16/16 15:11 76 94 11/16/16 15:10 76 95 11/16/16 15:05 74 96 11/16/16 15:04 74 94 11/16/16 15:01 75 155/101 11/16/16 15:00 78 96 11/16/16 14:57 74 92 11/16/16 14:55 79 96 11/16/16 14:50 76 96 11/16/16 14:45 79 98 11/16/16 14:40 79 98 11/16/16 14:35 77 97 11/16/16 14:30 79 98 11/16/16 14:25 76 98 11/16/16 14:20 83 99 11/16/16 14:15 78 97 11/16/16 14:10 82 99 11/16/16 14:05 77 99 11/16/16 14:00 79 160/98 98 11/16/16 13:55 80 97 11/16/16 13:50 82 99 11/16/16 13:45 78 100 11/16/16 13:40 81 98 11/16/16 13:35 93 H 98 11/16/16 13:30 81 99 11/16/16 13:25 79 99 11/16/16 13:20 81 99 11/16/16 13:15 82 99 11/16/16 13:10 79 100 11/16/16 13:05 76 99 11/16/16 13:01 78 142/91 11/16/16 13:00 82 99 11/16/16 12:55 86 99 11/16/16 12:50 81 99 11/16/16 12:45 81 99 11/16/16 12:40 93 H 100 11/16/16 12:38 97.9 F 16 11/16/16 12:35 92 H 99 11/16/16 12:30 89 99 11/16/16 12:25 86 99 11/16/16 12:20 84 99 11/16/16 12:15 89 99 11/16/16 12:10 88 99 11/16/16 12:07 85 130/87 11/16/16 12:05 89 99 11/16/16 12:04 81 141/94 11/16/16 12:00 83 100 11/16/16 11:59 83 154/94 11/16/16 11:58 82 161/106 11/16/16 11:55 83 99 11/16/16 11:54 87 136/102 11/16/16 11:50 81 99 11/16/16 11:45 72 98 11/16/16 11:40 78 98 11/16/16 11:35 79 98 11/16/16 11:30 71 98 11/16/16 11:25 72 98 11/16/16 11:20 71 98 11/16/16 11:15 74 97 11/16/16 11:10 72 97 11/16/16 11:05 74 97 11/16/16 11:00 76 149/100 98 11/16/16 10:55 77 98 11/16/16 10:50 93 H 99 11/16/16 10:45 74 96 11/16/16 10:40 73 97 11/16/16 10:35 75 98 11/16/16 10:30 75 97 11/16/16 10:25 73 97 11/16/16 10:20 71 98 11/16/16 10:15 73 97 11/16/16 10:10 72 99 11/16/16 10:05 79 99 11/16/16 10:01 76 146/95 11/16/16 10:00 80 98 Intake and Output 11/16/16 11/17/16 11/17/16 22:59 06:59 14:59 Intake Total 2125 2525 425 Output Total 850 800 200 Balance 1275 1725 225 Intake: IV 125 1125 125 MAGNESIUM SULFATE 40GM/ 25 1125 25 1000ML 40 gm In 1,000 ml @ 1 GM/HR 25 mls/hr IV DIRECT NELIA Rx#:[id number] PITOCin/NS 20 UNIT/1000ML 100 100 DRIP 20 units In 1,000 ml @ 250 mls/hr IV DIRECT NELIA Rx#:[id number] Oral 300 300 Intake, Free Water 1100 Other 2000 Output: Urine 850 800 200 Indwelling Catheter 850 800 200 Other: Intake, Other Source Saline Solution Total, Intake Amount 2000 300 300 Total, Output Amount 450 800 200 Estimated Blood Loss 100 - Exam Cardiovascular: Present: Regular rate, Normal S1, Normal S2 Lungs: Present: Clear to auscultation, Normal air movement Abdomen: Present: normal appearance, soft. Absent: distention, tenderness, guarding, rigidity Uterus: Present: firm, fundal height below umbilicus Extremities: Present: edema. Absent: tenderness - Labs Labs: Abnormal lab results 11/17/16 11/17/16 Range/Units 00:51 07:52 Hgb 9.5 L (10.1-14.3) gm/dl Hct 28.6 L (30.3-42.9) % Magnesium 5.8 H (1.7-2.3) mg/dL
--- NOTE | 2016-11-17 12:27 | Progress Note ---
Subjective Date of service: 11/17/16 Principal diagnosis: PPD # 1, Preeclampsia @ 33 2/7 weeks Interval history: 1st day after normal vaginal delivery Patient is in the bed, comfortable. Pain is well controlled with pain meds. Has not ambulated due to Mg2SO4 infusion. No residual neurological deficit. No anesthesia complications Objective - Constitutional Vitals: Vital Signs - 12hr 11/17/16 11/17/16 11/17/16 01:30 02:00 03:00 Temperature 98.6 F 98.6 F Pulse Rate Pulse Rate [ 83 77 From Monitor] Respiratory 16 18 16 Rate Blood Pressure Blood Pressure 153/97 128/84 [Right Arm] 11/17/16 11/17/16 11/17/16 04:30 06:30 08:05 Temperature 98.6 F 98.6 F 98.4 F Pulse Rate Pulse Rate [ 68 83 73 From Monitor] Respiratory 18 18 20 Rate Blood Pressure Blood Pressure 141/91 151/89 154/93 [Right Arm] 11/17/16 11/17/16 09:48 10:20 Temperature Pulse Rate 75 Pulse Rate [ 80 From Monitor] Respiratory 20 Rate Blood Pressure 150/98 Blood Pressure 153/93 [Right Arm] - Labs CBC & Chem 7: 11/17/16 07:52 11/13/16 11:05 Labs: Abnormal lab results 11/17/16 11/17/16 11/17/16 Range/Units 00:51 07:52 09:27 Hgb 9.5 L (10.1-14.3) gm/dl Hct 28.6 L (30.3-42.9) % Magnesium 5.8 H 6.2 H (1.7-2.3) mg/dL
[2016-11-17] MEDS: HCTZ PO SCH (14:51)
[2016-11-18] MEDS: NORMODYNE PO SCH ×2 (00:39→10:08)
[2016-11-18] MEDS: MOTRIN PO SCH ×2 (02:00→12:47)
--- NOTE | 2016-11-18 06:48 | Progress Note ---
Assessment and Plan PPD# 2 s/p -Doing well P: -Will discharge home at this time -Up in clinic in ~ 1 week for BP check - Patient Problems (1) (normal spontaneous vaginal delivery) Current Visit: Yes Status: Acute (2) Pre-eclampsia Onset Date: 11/13/16 Current Visit: Yes Status: Acute Qualifiers: Trimester: third trimester Qualified Code(s): O14.93 - Unspecified pre- eclampsia, third trimester Subjective - Subjective Date of service: 11/18/16 Principal diagnosis: PPD # 2, Preeclampsia @ 33 2/7 weeks Interval history: Patient seen and examined, stable doing well. No shortness of breath or chest pain, no fever or chills, no headaches, epigastric pain or scotomata. Blood pressure labile but improved on increase of labetalol to 400 mg twice a day Patient reports: appetite normal, voiding normally, pain well controlled, flatus , ambulating normally, no dizzy ambulation, no nauseated [place]: doing well Objective - Vital Signs Latest vital signs: Vital Signs Temp Pulse Pulse Resp BP BP 11/18/16 06:34 86 135/86 11/18/16 00:39 82 152/93 11/18/16 00:00 98.2 F 86 20 156/98 11/17/16 22:15 80 155/93 11/17/16 22:14 18 11/17/16 16:42 98.6 F 82 20 157/98 11/17/16 12:08 83 20 153/95 11/17/16 10:20 80 20 153/93 11/17/16 09:48 75 150/98 11/17/16 08:05 98.4 F 73 20 154/93 Intake and Output 11/17/16 11/17/16 11/18/16 14:59 22:59 06:59 Intake Total 1895 240 240 Output Total 1500 300 800 Balance 395 -60 -560 Intake: IV 875 MAGNESIUM SULFATE 40GM/ 175 1000ML 40 gm In 1,000 ml @ 1 GM/HR 25 mls/hr IV DIRECT NELIA Rx#:[id number] PITOCin/NS 20 UNIT/1000ML 700 DRIP 20 units In 1,000 ml @ 250 mls/hr IV DIRECT NELIA Rx#:[id number] Oral 1020 240 240 Output: Urine 1500 300 800 Indwelling Catheter 1500 300 800 Other: Total, Intake Amount 360 240 240 Total, Output Amount 900 300 800 # Bowel Movements 1 - Labs Labs: Abnormal lab results 11/17/16 11/17/16 Range/Units 07:52 09:27 Hgb 9.5 L (10.1-14.3) gm/dl Hct 28.6 L (30.3-42.9) % Magnesium 6.2 H (1.7-2.3) mg/dL
--- NOTE | 2016-11-18 06:56 | Discharge Summary ---
Providers - Providers Date of Admission: 11/13/16 12:44 Date of discharge: 11/18/16 Attending physician: LENARD NEIL 11/14/16 10:28 Consult to Physician [CONS] Urgent Consulting Provider: JEAN MARTINI Reason For Exam: IUP @ 33 weeks; [address] consult to:: [facility] Notified:: Office Phone number called:: [phone] Was contact made?: Yes If yes, spoke with:: Brenda Time called:: 10:30 11/16/16 15:29 Consult to Physician [CONS] Urgent Consulting Provider: GREER VEGA Reason For Exam: IUP @ 33 2/7 weeks; Preeclampsia Place consult to:: NICU Notified:: NICU Phone number called:: [phone] Was contact made?: Yes Time called:: 15:31 Primary care physician: LENARD NEIL Hospitalization Reason for admission: IUP - (Pre-eclampsia with severe features) Delivery: Episiotomy: none Laceration: none Other procedures: none Discharge diagnosis: other (IUP at 33 wks with Pre-eclampsia with severe features), delivery baby: male Hospital course: Course complicated by elevated blood pressures controlled with antihypertensives Condition at discharge: Good Disposition: DISCHARGED TO HOME OR SELFCARE - Discharge Diagnoses (1) (normal spontaneous vaginal delivery) Status: Acute (2) Pre-eclampsia Status: Acute Qualifiers: Trimester: third trimester Qualified Code(s): O14.93 - Unspecified pre- eclampsia, third trimester Plan - Discharge Medications Prescriptions: Acetaminophen 325 mg PO Q6HR #30 capsule Hydrochlorothiazide [HCTZ] 25 mg PO QDAY #30 tablet HYDROcodone/APAP 5-325 [[place] 5/325] 1 each PO Q6HR PRN #10 tablet PRN Reason: Pain Labetalol [Normodyne TAB] 400 mg PO BID #120 tablet Multivitamin with Iron [Multivitamins with Iron] 1 each PO DAILY #30 tablet - Provider Discharge Summary Activity: no sex for 6 weeks, no heavy lifting 4 weeks, no strenuous exercise Additional instructions: [] Smoking cessation referral if applicable(refer to patient education folder for contact #) [] Refer to [facility] Booklet Call your doctor immediately for: * Fever > 100.5 * Heavy vaginal bleeding ( >1 pad per hour) * Severe persistent headache * Shortness of breath * Reddened, hot, painful area to leg or breast * Drainage or odor from incision. * Keep incision clean and dry at all times and follow doctor's instructions regarding bathing/showering Advised patient to check her blood pressure at home in the morning and at night. And advised to call for systolic over 160 or diastolic over 100. Note the patient claims to have a sphygmomanometer at home - Follow up plan Follow up: LENARD NEIL MD [Primary Care Provider] - 48 Hours (for BP check)
[2016-11-18] MEDS: HCTZ PO SCH (10:09)
[2016-11-18] MEDS: PRENATAL VITAMIN PO SCH (10:09)
[2016-11-18] MEDS: FEOSOL PO SCH (10:09)
[2016-11-18 17:09] VITALS: BP 140/80
== END 2016-11-18 15:30 | disposition home or self-care (01) | DRG 774 ==
LOC: TRG 10:52 → LD 12:44 → OBSVTOIN 12:44 → OB 11-16 21:10
PROVIDERS: ADMIT Obstetrics & Gynecology; ATTEND Obstetrics & Gynecology
PROC: 10E0XZZ Delivery of Products of Conception, External Approach (ICD-10-PCS; principal; 2016-11-16)
PROC: 3E0P7GC Introduction of Other Therapeutic Substance into Female Reproductive, Via Natural or Artificial Opening (ICD-10-PCS; 2016-11-16)
PROC: 00HU33Z Insertion of Infusion Device into Spinal Canal, Percutaneous Approach (ICD-10-PCS; 2016-11-16)
PROC: 3E0R3CZ (ICD-10-PCS; 2016-11-16)
DX: O14.94 Unspecified pre-eclampsia, complicating childbirth (principal); O99.52 Diseases of the respiratory system complicating childbirth; J45.909 Unspecified asthma, uncomplicated; O42.013 Preterm premature rupture of membranes, onset of labor within 24 hours of rupture, third trimester; Z3A.33 33 weeks gestation of pregnancy; Z37.0 Single live birth; O63.9 Long labor, unspecified
CPT/HCPCS: 36415; 59200; 76819; 81001; 82565; 82570; 83615; 83735; 84156; 84450; 84460; 84550; 85014; 85018; 85027; 86850; 86900; 86901; 88307; 90471; 90715; 99211; G0463; J0290; J0360; J0702; J2405; J2590; J3010; J3475; J7120

== ENCOUNTER 2016-11-20 14:24 | Inpatient (IN) | payer MEDICAID ==
[2016-11-20 15:43] LABS: Hematocrit 29.3 % (30.3-42.9); Hemoglobin 9.9 gm/dl (10.1-14.3); Mean Corpuscular HGB Conc 34 % (30-34); Mean Corpuscular Hemoglobin 31 pg (28-32); Mean Corpuscular Volume 93 fl (79-97); Platelet Count 128 K/mm3 (140-440); Red Blood Count 3.15 M/mm3 (3.65-5.03); Red Cell Distribution Width 13.3 % (13.2-15.2); White Blood Count 12.4 K/mm3 (4.5-11.0)
[2016-11-20 15:59] LABS: Anion Gap 19 mmol/L; BUN/Creatinine Ratio 18.88; Blood Urea Nitrogen 17 mg/dL (7-17); Calcium 8.6 mg/dL (8.4-10.2); Carbon Dioxide 24 mmol/L (22-30); Chloride 96.6 mmol/L (98-107); Glucose 78 mg/dL (65-100); Potassium 4.5 mmol/L (3.6-5.0); Sodium 135 mmol/L (137-145)
[2016-11-20 16:36] LABS: Bilirubin,Urine NEG (Negative); Blood,Urine LG (Negative); Ketones,Urine NEG (Negative); Leukocyte Esterase,Urine TR (Negative); Mucus,Urine FEW /HPF; Nitrite,Urine NEG (Negative); Urobilinogen,Urine < 2.0 mg/dL (<2.0)
[2016-11-20 16:37] LABS: Protein,Urine >500 mg/dL (Negative)
[2016-11-20] MEDS ORDERED: NORMODYNE IV ONE (16:42)
[2016-11-20] MEDS ORDERED: MORPHINE IV ONE (16:43)
--- NOTE | 2016-11-20 16:44 | Emergency Department Report ---
HPI - General Chief Complaint: Headache Time Seen by Provider: 11/20/16 16:07 - HPI HPI: This is a 21-year-old -Swiss female who presents to the emergency department with a 2 day history of elevated blood pressure and a right-sided headache. This been going on since she was discharged home after having a vaginal delivery here at [facility] 3 days ago. However the patient's son was born at 32 weeks gestation secondary to the patient's preeclampsia. She was sent home on hydrocodone, hydrochlorothiazide and labetalol by her OB/ EDGER MACHINE HELPER, Dr. Macario Demarco. She says she has been taking his medications but has not been having improvement. The headache is right-sided and is a "thumping" sensation. She denies any vision change, chest pain, shortness of breath, nausea, vomiting or fever. She goes to [facility] for primary care. ED Past Medical Hx - Past Medical History Hx Hypertension: No Hx Congestive Heart Failure: No Hx Diabetes: No Hx Deep Vein Thrombosis: No Hx Renal Disease: No Hx Sickle Cell Disease: No Hx Seizures: No Hx Asthma: Yes (albuterol PRN) Hx COPD: No Hx HIV: No - Social History Smoking Status: Unknown if ever smoked Substance Use Type: None - Medications Home Medications: Home Medications Medication Instructions Recorded Confirmed Last Taken Type Vitamin 1 tab PO DAILY 11/13/16 11/20/16 Unknown History Acetaminophen 325 mg PO Q6HR #30 capsule 11/18/16 11/20/16 Unknown Rx HYDROcodone/APAP 5-325 [[place] 1 each PO Q6HR PRN #10 tablet 11/18/16 11/20/16 Unknown Rx 5/325] Hydrochlorothiazide [HCTZ] 25 mg PO QDAY #30 tablet 11/18/16 11/20/16 Unknown Rx Labetalol [Normodyne TAB] 400 mg PO BID #120 tablet 11/18/16 11/20/16 Unknown Rx Multivitamin with Iron 1 each PO DAILY #30 tablet 11/18/16 11/20/16 Unknown Rx [Multivitamins with Iron] ED Review of Systems ROS: Stated complaint: MIGRAINES/CHILDBIRTH 3 DAYS AGO Other details as noted in HPI Comment: All other systems reviewed and negative Constitutional: denies: chills, fever Eyes: denies: eye pain, eye discharge, vision change ENT: denies: ear pain, throat pain Respiratory: denies: cough, shortness of breath, wheezing Cardiovascular: denies: chest pain, palpitations Gastrointestinal: denies: abdominal pain, nausea, diarrhea Musculoskeletal: denies: back pain, joint swelling, arthralgia Skin: denies: rash, lesions Neurological: headache. denies: weakness, numbness, paresthesias Physical Exam - Physical Exam Vital Signs: Vital Signs 11/20/16 11/20/16 11/20/16 15:10 16:03 16:39 Temperature 98 F Pulse Rate 100 H 82 Respiratory 18 22 22 Rate Blood Pressure 141/105 Blood Pressure 132/86 [Left] O2 Sat by Pulse 100 98 99 Oximetry Physical Exam: GENERAL: The patient is well-developed well-nourished. Patient appears uncomfortable but in no acute distress. HEENT: Normocephalic. Atraumatic. Extraocular motions are intact. Patient has moist mucous membranes. Pupils equal reactive to light bilaterally. NECK: Supple. Trachea is midline. CHEST/LUNGS: Clear to auscultation. There is no respiratory distress noted. HEART/CARDIOVASCULAR: Regular. There is no tachycardia. There is no gallop rub or murmur. ABDOMEN: Abdomen is soft, nontender. Patient has normal bowel sounds. There is no abdominal distention. SKIN: Skin is warm and dry. NEURO: The patient is awake, alert, and oriented. The patient is cooperative. The patient has no focal neurologic deficits. The patient has normal speech and gait. MUSCULOSKELETAL: There is no tenderness or deformity. There is no limitation range of motion. There is no evidence of acute injury. ED Course Vital Signs 11/20/16 11/20/16 11/20/16 15:10 16:03 16:39 Temperature 98 F Pulse Rate 100 H 82 Respiratory 18 22 22 Rate Blood Pressure 141/105 Blood Pressure 132/86 [Left] O2 Sat by Pulse 100 98 99 Oximetry ED Medical Decision Making - Lab Data Result diagrams: 11/20/16 15:20 11/20/16 15:20 - Medical Decision Making 21-year-old female who was recently discharged with preeclampsia presents with what appears to be continued preeclampsia. The patient has a headache, hypertensive urgency. Her labs show mild THROMbocytopenia and some proteinuria. The patient was given pain medication for her headache and labetalol for blood pressure which did show some improvement but still remains very elevated. There is no sign of help syndrome. Since patient continues to have discomfort and elevated blood pressure, I spoke with the SENIOR BOILER OPERATOR, Dr. Demarco , who has accepted the patient for admission to mother-baby. - Differential Diagnosis preeclampsia, tension headache, migraine Critical Care Time: No Critical care attestation.: If time is entered above; I have spent that time in minutes in the direct care of this critically ill patient, excluding procedure time. ED Disposition Clinical Impression: Hypertensive urgency Pre-eclampsia Qualifiers: Trimester: third trimester Qualified Code(s): O14.93 - Unspecified pre- eclampsia, third trimester Headache Qualifiers: Headache type: unspecified Headache chronicity pattern: unspecified pattern Intractability: not intractable Qualified Code(s): R51 - Headache Disposition: OP ADMITTED IP TO THIS HOSP Is pt being admited?: Yes Condition: Stable Instructions: Hypertension (ED) Referrals: PRIMARY CARE, [Primary Care Provider] - 3-5 Days Time of Disposition: 18:49
[2016-11-20] MEDS ORDERED: ZOFRAN IV PRN (18:05)
[2016-11-20] MEDS ORDERED: TYLENOL PO PRN (18:05)
[2016-11-20] MEDS ORDERED: COLACE PO PRN (18:05)
--- NOTE | 2016-11-20 18:06 | Admit Criteria Form ---
Admission Criteria Documentation: HEADACHES Clinical Indications for Admission to Inpatient Care (Place 'X' for any and all applicable criteria): Admission is indicated for ANY ONE of the following(1)(2)(3)(4): [X ]I. Inpatient admission required rather than observational care (Also use Headaches: Observation Care as appropriate) because of ANY ONE of the following: [ ]a) Severe pain requiring acute inpatient management [ ]b) Altered mental status that is severe or persistent [ ]c) Vomiting or dehydration that is severe or persistent [ ]d) New-onset focal neurologic deficit that is severe or persistent [X ]e) Hypertension requiring inpatient treatment [ ]f) Severe (new) neurologic findings requiring inpatient care as indicated by ANY ONE of following(9)(10): [ ]1) Papilledema [ ]2) Cerebral edema [ ]3) Mass effect on CT scan [ ]4) Cerebral bleeding, ischemia, or vasospasm(16) [ ]5) Hydrocephalus(17) [ ]6) Uncontrolled seizures [ ]g) IV infusion of anticoagulation, platelet inhibitors vasoactive, or antiarrhythmic medication. [ ]h) Cerebral bleeding, hydrocephalus, or vasospasm monitoring (16) [ ]i) Increased intracranial pressure or cerebral edema monitoring (17) [ ]j) Other condition, treatment or monitoring requiring inpatient admission [ ]II. Unruptured but threatening aneurysm or vascular malformation [ ]III. Venous sinus thrombosis [ ]IV. Increased intracranial pressure [ ]V. Cerebral spinal fluid leak with decreased intracranial pressure [ ]. Medication-overuse headache that has failed all outpatient management options [ ]VII. Vasculitis (eg, giant cell (temporal) arteritis, central nervous system vasculitis) requiring IV corticosteroids, IV antithrombotic therapy, or inpatient monitoring (eg, visual symptoms or findings, other ischemic manifestations)[A](10)(11) Extended stay beyond goal length of stay may be needed for (27): [ ]a) Intractable migraine [ ]b) Subarachnoid or intracranial hemorrhage [ ]c) Malignant hypertension [ ]d) Detoxification from drug withdrawal in medication-overuse headache (29) The original [facility] [employer] content created by [facility] has been revised. The portions of the content which have been revised are identified through the use of italic text or in bold, and [employer] has neither reviewed nor approved the modified material.All other unmodified content is copyright [facility]. Please see references footnoted in the original [facility] edition 2016 Admission Criteria Met: Yes
--- NOTE | 2016-11-20 18:13 | History and Physical Report ---
History of Present Illness Date of examination: 11/20/16 Chief complaint: Headaches with Elevated BP History of present illness: Pt is a 21-year-old -Stateless female s/p 11/16/16 who presents to the emergency department with a 2 day history of elevated blood pressure and a right-sided headache. This been going on since she was discharged home after having a vaginal delivery here at [facility] 4 days ago at 32 weeks gestation due to preeclampsia. She was sent home on hydrocodone, hydrochlorothiazide and labetalol, but has not been having any improvement. The headache is right-sided and is a "thumping" sensation. She denies any vision change, chest pain, shortness of breath, nausea, vomiting or fever. Past History Past Medical History: other (preeclampsia) Past Surgical History: no surgical history Family/Genetic History: none Social history: no significant social history, single - Obstetrical History : 1 Medications and Allergies Allergies Allergy/AdvReac Type Severity Reaction Status Date / Time No Known Allergies Allergy Verified 08/18/16 21:57 Home Medications Medication Instructions Recorded Confirmed Last Taken Type Vitamin 1 tab PO DAILY 11/13/16 11/20/16 Unknown History Acetaminophen 325 mg PO Q6HR #30 capsule 11/18/16 11/20/16 Unknown Rx HYDROcodone/APAP 5-325 [[place] 1 each PO Q6HR PRN #10 tablet 11/18/16 11/20/16 Unknown Rx 5/325] Hydrochlorothiazide [HCTZ] 25 mg PO QDAY #30 tablet 11/18/16 11/20/16 Unknown Rx Labetalol [Normodyne TAB] 400 mg PO BID #120 tablet 11/18/16 11/20/16 Unknown Rx Multivitamin with Iron 1 each PO DAILY #30 tablet 11/18/16 11/20/16 Unknown Rx [Multivitamins with Iron] Active Meds: Active Medications Acetaminophen (Tylenol) 650 mg PO Q4H PRN PRN Reason: Pain MILD(1-3)/Fever >100.5/SMITH Docusate Sodium (Colace) 100 mg PO Q12H PRN PRN Reason: Constipation Hydralazine HCl (Apresoline) 10 mg IV ONCE ONE Stop: 11/20/16 18:06 Lactated Ringer's (Lactated Ringers) 1,000 mls @ 125 mls/hr IV DIRECT NELIA Magnesium Sulfate (Magnesium Sulfate 40gm/1000ml) 40 gm in 1,000 mls @ 50 mls/ hr IV DIRECT NELIA PRN Reason: 2 GM/HR Magnesium Sulfate (Magnesium Sulfate 4gm/100ml) 4 gm in 100 mls @ 300 mls/hr IV ONCE ONE Stop: 11/20/16 18:24 Labetalol HCl (Normodyne) 400 mg PO BID NELIA Multivitamins/Iron/Calcium ( Vitamin) 1 each PO QDAY NELIA Ondansetron HCl (Zofran) 4 mg IV Q6H PRN PRN Reason: Nausea And Vomiting Review of Systems All systems: negative - Vital Signs Vital signs: Vital Signs Temp Pulse Resp BP Pulse Ox 98 F 100 H 18 141/105 100 11/20/16 15:10 11/20/16 15:10 11/20/16 15:10 11/20/16 15:10 11/20/16 15:10 Temp Pulse Resp BP Pulse Ox 98 F 88 20 168/112 99 11/20/16 15:10 11/20/16 16:55 11/20/16 16:56 11/20/16 17:20 11/20/16 16:39 - Physical Exam Breasts: Positive: deferred Cardiovascular: Regular rate Lungs: Positive: Clear to auscultation Abdomen: Positive: normal appearance, soft Uterus: Positive: normal size Extremities: Positive: normal Results Result Diagrams: 11/20/16 15:20 11/20/16 15:20 Abnormal lab results 11/20/16 11/20/16 Range/Units 15:20 15:20 WBC 12.4 H (4.5-11.0) K/mm3 RBC 3.15 L (3.65-5.03) M/mm3 Hgb 9.9 L (10.1-14.3) gm/dl Hct 29.3 L (30.3-42.9) % Plt Count 128 L (140-440) K/mm3 Sodium 135 L (137-145) mmol/L Chloride 96.6 L (98-107) mmol/L All other labs normal. Assessment and Plan - Patient Problems (1) Pre-eclampsia in period Onset Date: 11/20/16 Current Visit: Yes Status: Acute Plan to address problem: A: preeclampsia - P: Will admit for IV magnesium sulfate and antihypertensive medications Obtain a Hospitalist consultation
[2016-11-20 18:14] LABS: Alanine Aminotransferase 31 units/L (7-56); Albumin 3.1 g/dL (3.9-5); Albumin/Globulin Ratio 0.8 %; Alkaline Phosphatase 169 units/L (35-129); Bilirubin,Total 0.2 mg/dL (0.1-1.2); Total Protein 7.2 g/dL (6.3-8.2)
[2016-11-20 18:22] LABS: Bilirubin,Direct < 0.2 mg/dL (0-0.2)
[2016-11-20] MEDS ORDERED: MAGNESIUM SULFATE 4GM/100ML 4 GM/100 ML BAG IV ONE (19:00)
[2016-11-20] MEDS ORDERED: APRESOLINE IV ONE (19:00)
[2016-11-20] MEDS ORDERED: MAGNESIUM SULFATE 40GM/1000ML 40 GM/1,000 ML BAG IV SCH (19:00)
--- NOTE | 2016-11-20 19:25 | Consultation ---
History of Present Illness - History of Present Illness 21 YO female with HTN, Preeclampsia presents to ED for evaluation. Pt states that she blood pressure was high at home for the past 2 days and is accompanied by a right sided headache. Pt denies fever, chills, CP, Palpitations, syncope, vision changes, NVD. Past History Past Medical History: hyperthyroidism Past Surgical History: No surgical history, Other (reviewed) Social history: no significant social history, single Family history: hypertension Medications and Allergies Allergies Allergy/AdvReac Type Severity Reaction Status Date / Time No Known Allergies Allergy Verified 08/18/16 21:57 Home Medications Medication Instructions Recorded Confirmed Last Taken Type Vitamin 1 tab PO DAILY 11/13/16 11/20/16 Unknown History Acetaminophen 325 mg PO Q6HR #30 capsule 11/18/16 11/20/16 Unknown Rx HYDROcodone/APAP 5-325 [[place] 1 each PO Q6HR PRN #10 tablet 11/18/16 11/20/16 Unknown Rx 5/325] Hydrochlorothiazide [HCTZ] 25 mg PO QDAY #30 tablet 11/18/16 11/20/16 Unknown Rx Labetalol [Normodyne TAB] 400 mg PO BID #120 tablet 11/18/16 11/20/16 Unknown Rx Multivitamin with Iron 1 each PO DAILY #30 tablet 11/18/16 11/20/16 Unknown Rx [Multivitamins with Iron] Active Meds: Active Medications Acetaminophen (Tylenol) 650 mg PO Q4H PRN PRN Reason: Pain MILD(1-3)/Fever >100.5/SMITH Docusate Sodium (Colace) 100 mg PO Q12H PRN PRN Reason: Constipation Lactated Ringer's (Lactated Ringers) 1,000 mls @ 125 mls/hr IV DIRECT NELIA Magnesium Sulfate (Magnesium Sulfate 40gm/1000ml) 40 gm in 1,000 mls @ 50 mls/ hr IV DIRECT NELIA PRN Reason: 2 GM/HR Labetalol HCl (Normodyne) 400 mg PO BID NELIA Multivitamins/Iron/Calcium ( Vitamin) 1 each PO QDAY NELIA Ondansetron HCl (Zofran) 4 mg IV Q6H PRN PRN Reason: Nausea And Vomiting Review of Systems Constitutional: other (high blood pressure, headache) Exam - Constitutional Vitals: Temp Pulse Resp BP Pulse Ox 98 F 88 20 163/113 99 11/20/16 15:10 11/20/16 18:55 11/20/16 16:56 11/20/16 18:55 11/20/16 16:39 General appearance: Present: no acute distress, well-nourished - EENT Eyes: Present: PERRL ENT: hearing intact, clear oral mucosa - Neck Neck: Present: supple, normal ROM - Respiratory Respiratory effort: normal Respiratory: bilateral: CTA - Cardiovascular Heart Sounds: Present: S1 & S2. Absent: rub, click - Extremities Extremities: pulses symmetrical, No edema Peripheral Pulses: within normal limits - Abdominal General gastrointestinal: Present: soft, non-tender, non-distended, normal bowel sounds Female genitourinary: Present: normal - Integumentary Integumentary: Present: clear, warm, dry - Musculoskeletal Musculoskeletal: gait normal, strength equal bilaterally - Psychiatric Psychiatric: appropriate mood/affect, intact judgment & insight - Neurologic Neurologic: CNII-XII intact, moves all extremities Results - Labs CBC & Chem 7: 11/20/16 15:20 11/20/16 15:20 Assessment and Plan - Patient Problems (1) Hypertensive urgency Current Visit: Yes Status: Acute Plan to address problem: Continue current medication regimen, add hydralazine 25mg PO tid, systolic BP goal overnight 160-180. Blood pressure log tid after discharge home.
[2016-11-20] MEDS: LACTATED RINGERS 1,000 ML IV SCH (22:02)
[2016-11-20] MEDS: APRESOLINE PO SCH (22:56)
[2016-11-20] MEDS: NORMODYNE PO SCH (22:57)
[2016-11-21] MEDS: APRESOLINE PO SCH ×2 (06:18→15:48)
[2016-11-21] MEDS ORDERED: PRENATAL VITAMIN PO SCH (10:00)
[2016-11-21] MEDS: NORMODYNE PO SCH (10:38)
[2016-11-21] MEDS: LACTATED RINGERS 1,000 ML IV SCH (10:50)
--- NOTE | 2016-11-21 11:03 | Progress Note ---
Assessment and Plan Assessment and plan: Visual Lead follow up for Hypertension -Malignant hypertension resolved. Continue present management -Right sided headache, prior to arrival, difficult to pinpoint the cause at this point because she symptom free, probably related to very high bp which has resolved with control of bp. Since bp controlled, will sign off. History Interval history: Patient seen and examined. Follow up for hypertension. She denies any headache at this time. No n/v/cp/sob reported. Hospitalist Physical - Physical exam Narrative exam: gen; nad a/o x 3 cvs; reg tach, normal s1s2 lung; cta b neuro; nonfocal - Constitutional Vitals: Temp Pulse Resp BP Pulse Ox 98.4 F 103 H 20 127/67 99 11/21/16 09:05 11/21/16 10:38 11/21/16 09:05 11/21/16 10:38 11/20/16 20:03 General appearance: Present: no acute distress, well-nourished Results - Labs CBC & Chem 7: 11/20/16 15:20 11/20/16 15:20 Labs: Laboratory Last Values WBC 12.4 K/mm3 (4.5-11.0) H 11/20/16 15:20 RBC 3.15 M/mm3 (3.65-5.03) L 11/20/16 15:20 Hgb 9.9 gm/dl (10.1-14.3) L 11/20/16 15:20 Hct 29.3 % (30.3-42.9) L 11/20/16 15:20 MCV 93 fl (79-97) 11/20/16 15:20 MCH 31 pg (28-32) 11/20/16 15:20 MCHC 34 % (30-34) 11/20/16 15:20 RDW 13.3 % (13.2-15.2) 11/20/16 15:20 Plt Count 128 K/mm3 (140-440) L 11/20/16 15:20 Sodium 135 mmol/L (137-145) L 11/20/16 15:20 Potassium 4.5 mmol/L (3.6-5.0) 11/20/16 15:20 Chloride 96.6 mmol/L (98-107) L 11/20/16 15:20 Carbon Dioxide 24 mmol/L (22-30) 11/20/16 15:20 Anion Gap 19 mmol/L 11/20/16 15:20 BUN 17 mg/dL (7-17) 11/20/16 15:20 Creatinine 0.9 mg/dL (0.7-1.2) 11/20/16 15:20 Estimated GFR > 60 ml/min 11/20/16 15:20 BUN/Creatinine Ratio 18.88 % 11/20/16 15:20 Glucose 78 mg/dL (65-100) 11/20/16 15:20 Calcium 8.6 mg/dL (8.4-10.2) 11/20/16 15:20 Total Bilirubin 0.2 mg/dL (0.1-1.2) 11/20/16 15:20 Direct Bilirubin < 0.2 mg/dL (0-0.2) 11/20/16 15:20 Indirect Bilirubin 0.0 mg/dL 11/20/16 15:20 AST 39 units/L (5-40) 11/20/16 15:20 ALT 31 units/L (7-56) 11/20/16 15:20 Alkaline Phosphatase 169 units/L (35-129) H 11/20/16 15:20 Total Protein 7.2 g/dL (6.3-8.2) 11/20/16 15:20 Albumin 3.1 g/dL (3.9-5) L 11/20/16 15:20 Albumin/Globulin Ratio 0.8 % 11/20/16 15:20 Urine Color Straw (Yellow) 11/20/16 16:28 Urine Turbidity Clear (Clear) 11/20/16 16:28 Urine pH 7.0 (5.0-7.0) 11/20/16 16:28 Ur Specific Barrett 1.013 (1.003-1.030) 11/20/16 16:28 Urine Protein >500 mg/dL (Negative) 11/20/16 16:28 Urine Glucose (UA) Neg mg/dL (Negative) 11/20/16 16:28 Urine Ketones Neg mg/dL (Negative) 11/20/16 16:28 Urine Blood Lg (Negative) 11/20/16 16:28 Urine Nitrite Neg (Negative) 11/20/16 16:28 Urine Bilirubin Neg (Negative) 11/20/16 16:28 Urine Urobilinogen < 2.0 mg/dL (<2.0) 11/20/16 16:28 Ur Leukocyte Esterase Tr (Negative) 11/20/16 16:28 Urine WBC (Auto) 6.0 /HPF (0.0-6.0) 11/20/16 16:28 Urine RBC (Auto) 38.0 /HPF (0.0-6.0) 11/20/16 16:28 U Epithel Cells (Auto) < 1.0 /HPF (0-13.0) 11/20/16 16:28 Urine Mucus Few /HPF 11/20/16 16:28
--- NOTE | 2016-11-21 14:04 | Progress Note ---
Assessment and Plan A: hypertension -s/p consult from hospitalist much improved P: -Hospitalist notes reviewed, thanks -Discharge on Hydralazine 25 mg every 8 per hospitalist -Follow-up with primary care in 1 week - Patient Problems (1) Hypertensive urgency Current Visit: Yes Status: Acute Subjective - Subjective Date of service: 11/21/16 Principal diagnosis: PP HTN Interval history: She was seen and examined, stable doing well no new issues. Patient reports: appetite normal, voiding normally, pain well controlled, ambulating normally, no dizzy ambulation Objective - Vital Signs Latest vital signs: Vital Signs Temp Pulse Pulse Resp BP BP BP 11/21/16 12:32 78 18 129/77 11/21/16 10:56 98 H 20 117/67 11/21/16 10:38 103 H 127/67 11/21/16 09:05 98.4 F 98 H 20 134/77 11/21/16 06:18 103 H 148/89 11/21/16 06:00 99.8 F H 98 H 20 148/90 11/21/16 05:00 102 H 156/99 11/21/16 04:15 98.6 F 103 H 20 160/104 11/21/16 02:10 98.6 F 101 H 18 126/77 11/21/16 00:30 98.3 F 102 H 16 136/78 11/20/16 22:57 112 H 148/85 11/20/16 22:56 112 H 148/85 11/20/16 22:20 98.8 F 109 H 15 137/89 11/20/16 20:03 95 H 18 128/86 11/20/16 18:55 88 163/113 11/20/16 18:20 211/131 Pulse Ox 11/21/16 12:32 11/21/16 10:56 11/21/16 10:38 11/21/16 09:05 11/21/16 06:18 11/21/16 06:00 11/21/16 05:00 11/21/16 04:15 11/21/16 02:10 11/21/16 00:30 11/20/16 22:57 11/20/16 22:56 11/20/16 22:20 11/20/16 20:03 99 11/20/16 18:55 11/20/16 18:20 Intake and Output 11/20/16 11/21/16 11/21/16 22:59 06:59 14:59 Intake Total 125 1100 912 Output Total 500 1900 2500 Balance -290 -276 -3704 Intake: IV 125 1000 312 Lactated Ringers 1,000 ml 75 1000 @ 125 mls/hr IV DIRECT NELIA Rx#:[id number] MAGNESIUM SULFATE 40GM/ 50 312 1000ML 40 gm In 1,000 ml @ 2 GM/HR 50 mls/hr IV DIRECT NELIA Rx#:[id number] Oral 600 Intake, Free Water 100 Output: Urine 500 1900 2500 Indwelling Catheter 0 1900 2500 Void 500 Other: Total, Intake Amount 240 Total, Output Amount 0 1100 900 Voiding Method Indwelling Catheter - Exam Abdomen: Present: normal appearance, soft. Absent: distention, tenderness, guarding, normal bowel sounds
--- NOTE | 2016-11-21 14:09 | Discharge Summary ---
Providers - Providers Date of Admission: 11/20/16 18:05 Date of discharge: 11/21/16 Attending physician: LENARD NEIL 11/20/16 19:20 Consult to Physician [CONS] Urgent Consulting Provider: JULIO C STINSON Reason For Exam: preeclampsia Place consult to:: Dr Stinson Notified:: Dr Stinson Phone number called:: [phone] Was contact made?: Yes If yes, spoke with:: Dr Stinson Time called:: 19:22 Primary care physician: CR[employer] DEPARTMENT MANAGER Hospitalization Reason for admission: observation ( hypertension), other complications: other (severe hypertension) Discharge diagnosis: other ( hypertension) Hospital course: Pt is a 21-year-old -[place]and[place] female s/p 11/16/16 who presents to the emergency department with a 2 day history of elevated blood pressure and a right-sided headache. This been going on since she was discharged home after having a vaginal delivery here at [facility] 4 days ago at 32 weeks gestation due to preeclampsia. She was sent home on hydrocodone, hydrochlorothiazide and labetalol, but has not been having any improvement. The headache is right-sided and is a "thumping" sensation. She denies any vision change, chest pain, shortness of breath, nausea, vomiting or fever. As admitted to the floor, she was started on magnesium and antihypertensives. Hospitalist consult was requested. Started on her prior medications as noted and hospitalist added hydralazine 25 mg every 8. Pressure improved and she has been cleared by hospitalist for discharge home Condition at discharge: Good Disposition: DISCHARGED TO HOME OR SELFCARE - Discharge Diagnoses (1) Hypertensive urgency Status: Acute Plan - Discharge Medications Prescriptions: hydrALAZINE [Apresoline TAB] 25 mg PO Q8HR #90 tab - Provider Discharge Summary Activity: no sex for 6 weeks, no heavy lifting 4 weeks, no strenuous exercise Diet: routine Instructions: other (follow up in clinic in 3-5 days with BP check) Additional instructions: [] Smoking cessation referral if applicable(refer to patient education folder for contact #) [] Refer to [facility] Booklet Call your doctor immediately for: * Fever > 100.5 * Heavy vaginal bleeding ( >1 pad per hour) * Severe persistent headache * Shortness of breath * Reddened, hot, painful area to leg or breast * Drainage or odor from incision. * Keep incision clean and dry at all times and follow doctor's instructions regarding bathing/showering - Follow up plan Follow up: PRIMARY CARE,MD [Primary Care Provider] - 3-5 Days
[2016-11-21 15:48] VITALS: BP 127/85
== END 2016-11-21 17:32 | disposition home or self-care (01) | DRG 776 ==
LOC: ED 14:24 → OB 18:05
PROVIDERS: ADMIT Obstetrics & Gynecology; ATTEND Obstetrics & Gynecology
DX: O16.5 Unspecified maternal hypertension, complicating the puerperium (principal); I16.0 Hypertensive urgency; E05.90 Thyrotoxicosis, unspecified without thyrotoxic crisis or storm; O99.53 Diseases of the respiratory system complicating the puerperium; J45.909 Unspecified asthma, uncomplicated; O99.285 Endocrine, nutritional and metabolic diseases complicating the puerperium; O14.95 Unspecified pre-eclampsia, complicating the puerperium; Z82.49 Family history of ischemic heart disease and other diseases of the circulatory system
CPT/HCPCS: 36415; 80048; 80074; 81001; 85027; 96365; 96375; J0360; J2270; J3475; J7120

== ENCOUNTER 2017-11-14 23:01 | Emergency (ER) | payer MEDICAID ==
[2017-11-15 00:04] VITALS: BP 114/74
[2017-11-15] MEDS ORDERED: TETRACAINE 0.5% OU ONE (00:21)
[2017-11-15] MEDS ORDERED: FUL-GLO OP ONE (00:21)
[2017-11-15] MEDS ORDERED: BSS OU ONE (00:21)
[2017-11-15] MEDS ORDERED: TETRACAINE 0.5% ONE (00:22)
--- NOTE | 2017-11-15 01:43 | Emergency Department Report ---
Eye Injury/Foreign Body - HPI Duration: 1 Day Eye Location: Right Severity: Moderate Tetanus Status: Up to Date Eye Symptoms: Eye Pain: Yes (right eye), Blurred Vision: No, Eye Redness: Yes, Grinding/Hammering Metal: Yes, Used Eye Protection: Yes, Contact Lens Use: Yes, Recalls Injury: Yes, Photophobia: No Other History: This is a 22 y.o. female that presents with sensitivity to light , sensation of grain, redness, and pain for 1 day. 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 She was wearing contact lens. When she returned home she took the contact lenses out and patched right eye. She thought she would feel better when she woke up this morning but symptoms got worse. her right eye was swollen and sensitive to light. Denies visual change, floaters, or corazon sensation, discharge, or dizziness. ED Review of Systems ROS: Stated complaint: RIGHT EYE PAIN Other details as noted in HPI Constitutional: denies: chills, fever Eyes: eye pain (right eye, sensation of sand and sensitive to light). denies: eye discharge, vision change ENT: denies: ear pain, throat pain, dental pain, hearing loss, epistaxis, congestion Respiratory: denies: cough, shortness of breath, wheezing Cardiovascular: denies: chest pain, palpitations Gastrointestinal: denies: abdominal pain, nausea, diarrhea Neurological: denies: headache, weakness, paresthesias Psychiatric: denies: anxiety, depression ED Past Medical Hx - Past Medical History Hx Hypertension: Yes Hx Congestive Heart Failure: No Hx Diabetes: No Hx Deep Vein Thrombosis: No Hx Renal Disease: No Hx Sickle Cell Disease: No Hx Seizures: No Hx Asthma: Yes (albuterol PRN) Hx COPD: No Hx HIV: No - Surgical History Past Surgical History?: No - Social History Smoking Status: Never Smoker Substance Use Type: None - Medications Home Medications: Home Medications Medication Instructions Recorded Confirmed Last Taken Type Vitamin 1 tab PO DAILY 11/13/16 11/20/16 Unknown History Acetaminophen 325 mg PO Q6HR #30 capsule 11/18/16 11/20/16 Unknown Rx HYDROcodone/APAP 5-325 [[place] 1 each PO Q6HR PRN #10 tablet 11/18/16 11/20/16 Unknown Rx 5/325] Hydrochlorothiazide [HCTZ] 25 mg PO QDAY #30 tablet 11/18/16 11/20/16 Unknown Rx Labetalol [Normodyne TAB] 400 mg PO BID #120 tablet 11/18/16 11/20/16 Unknown Rx Multivitamin with Iron 1 each PO DAILY #30 tablet 11/18/16 11/20/16 Unknown Rx [Multivitamins with Iron] hydrALAZINE [Apresoline TAB] 25 mg PO Q8HR #90 tab 11/21/16 Unknown Rx Ciprofloxacin 0.3% (Nf) 2.5 ml OP Q2H 7 Days #1 bottle 11/15/17 Unknown Rx [Ciprofloxacin OPTH] Eye Injury Exam - Exam General: Vital signs noted. No distress. Alert and acting appropriately. - Visual Acuity Right Eye Exam: Right Injection, Right Chemosis, Right Fluorescein Uptake, Right Fluorescein Uptake (slit lamp), Both EOMI, Neither Abnormal Pupil, Neither Eye Foreign Body, Neither Lid Foreign Body, Neither Mucous Discharge, Neither Purulent Discharge, Neither Cell/Flare (slit lamp), Neither Corneal Edema, Neither Photophobia ED Course Vital Signs 11/14/17 23:55 Temperature 98.4 F Pulse Rate 95 H Respiratory 16 Rate Blood Pressure 114/74 O2 Sat by Pulse 99 Oximetry ED Medical Decision Making - Medical Decision Making This is a 22 year old female that presents with right eye pain, injected, and sensitivity to light for 1 day. Patient is stable and was examined by me. Vitals normal. Bacon light exam, Physical assessment susceptible of conjunctivitis bilateral. Start erythromycin. Discussed plan with mother and she agreed with plan. Discharged home in stable condition. Follow up with PCP in 24-72 hours. Critical care attestation.: If time is entered above; I have spent that time in minutes in the direct care of this critically ill patient, excluding procedure time. ED Disposition Clinical Impression: Eye foreign body Qualifiers: Encounter type: initial encounter Laterality: right Qualified Code(s): T15.91XA - Foreign body on external eye, part unspecified, right eye, initial encounter Conjunctivitis Qualifiers: Conjunctivitis type: acute Acute conjunctivitis type: follicular Laterality: right Qualified Code(s): H10.011 - Acute follicular conjunctivitis, right eye Disposition: DC- TO HOME OR SELFCARE Is pt being admited?: No Does the pt Need Aspirin: No Condition: Stable Instructions: Conjunctivitis (ED), Eye Foreign Body (ED) Additional Instructions: Don't share any towels or bedding to prevent spread of infection. Use cool compress to each eye to decrease swelling. Avoid rubbing or touching eyes, because rubbing eyes can cause worsening symptoms. Take cipro drops as prescribed. Follow up with Ophthalmology in 24-72 hours. Return to ER if swelling don't improve or difficulty breathing after 2 days of medication. Prescriptions: Ciprofloxacin 0.3% (Nf) [Ciprofloxacin OPTH] 2.5 ml OP Q2H 7 Days #1 bottle Referrals: [facility] [Provider Group] - 3-5 Days [facility] [Provider Group] - 3-5 Days Time of Disposition: 02:08 Print Language: SLOVENIAN
== END 2017-11-15 02:19 | disposition home or self-care (01) ==
LOC: ED 23:54
DX: T15.81XA Foreign body in other and multiple parts of external eye, right eye, initial encounter (principal); H10.011 Acute follicular conjunctivitis, right eye; J45.909 Unspecified asthma, uncomplicated; W45.8XXA Other foreign body or object entering through skin, initial encounter; Y93.89 Activity, other specified; Y92.89 Other specified places as the place of occurrence of the external cause; Y99.8 Other external cause status
CPT/HCPCS: 99283

== ENCOUNTER 2018-08-25 10:21 | Emergency (ER) | payer MEDICAID, OTHER ==
[2018-08-25 10:55] LABS: Bilirubin,Urine NEG (Negative); Blood,Urine LG (Negative); Color,Urine Yellow (Yellow); Urobilinogen,Urine < 2.0 mg/dL (<2.0)
[2018-08-25 10:56] LABS: HCG Qualitative,Urine Negative (Negative); RBC,Urine > 182.0 /HPF (0.0-6.0)
[2018-08-25] MEDS: NACL 0.9% 1000 ML 1,000 ML IV ONE ×2 (11:46→11:53)
[2018-08-25] MEDS: ZOFRAN IV ONE ×2 (11:50→11:53)
[2018-08-25] MEDS: MORPHINE IV ONE (11:53)
[2018-08-25 12:01] LABS: Basophils % (Auto) 0.5 % (0.0-1.8); Hematocrit 41.3 % (30.3-42.9); Hemoglobin 14.2 gm/dl (10.1-14.3); Lymphocytes # (Auto) 0.9 K/mm3 (1.2-5.4); Lymphocytes % (Auto) 11.3 % (13.4-35.0); Mean Corpuscular HGB Conc 35 % (30-34); Mean Corpuscular Volume 89 fl (79-97); Monocytes # (Auto) 0.6 K/mm3 (0.0-0.8); Monocytes % (Auto) 8.5 % (0.0-7.3); Platelet Count 160 K/mm3 (140-440); Red Blood Count 4.64 M/mm3 (3.65-5.03); Red Cell Distribution Width 12.5 % (13.2-15.2)
[2018-08-25 12:11] LABS: Alanine Aminotransferase 12 units/L (7-56); Albumin 4.2 g/dL (3.9-5); BUN/Creatinine Ratio 15; Bilirubin,Direct < 0.2 mg/dL (0-0.2); Blood Urea Nitrogen 15 mg/dL (7-17); Calcium 9.1 mg/dL (8.4-10.2); Hemolysis Index 7
--- NOTE | 2018-08-25 12:12 | Emergency Department Report ---
ED Abdominal Pain HPI - General Chief Complaint: Abdominal Pain Stated Complaint: LFT SIDE EXTREME PAIN Time Seen by Provider: 08/25/18 11:22 Source: patient Mode of arrival: Ambulatory Limitations: No Limitations - History of Present Illness Initial Comments: This is a 22-year-old female nontoxic, well nourished in appearance, no acute signs of distress presents to the ED with c/o of nausea with vomiting and left flank pain 1 day. Patient also has lower pelvic pain. Patient describes vomiting as food content and yellow gastric acid. Patient describes flank/pelvic pain as cramping and aching with level of 8/10. Patient denies chest pain, short of breath, fever, chills, headache, stiff neck, numbness or tingling. Patient denies any urinary symptoms. Patient denies any diarrhea or constipation. Patient denies any recent travels. Patient denies any allergies or PMH. Patient stated is currently on menstrual cycle. MD Complaint: flank pain, other (pelvic pain) -: days(s) (1) Location: L flank Radiation: none Migration to: no migration Severity: mild Severity scale (0 -10): 8 Quality: cramping, aching Consistency: constant Improves With: nothing Worsens With: nothing Associated Symptoms: nausea, vomiting. denies: diarrhea, fever, chills, constipation, dysuria, hematemesis, hematochezia, melena, hematuria, anorexia, syncope - Related Data LMP (females 10-50): this week Home Medications Medication Instructions Recorded Confirmed Last Taken Vitamin 1 tab PO DAILY 11/13/16 11/20/16 Unknown Previous Rx's Medication Instructions Recorded Last Taken Type Acetaminophen 325 mg PO Q6HR #30 capsule 11/18/16 Unknown Rx HYDROcodone/APAP 5-325 [[place] 1 each PO Q6HR PRN #10 tablet 11/18/16 Unknown Rx 5/325] Labetalol [Normodyne TAB] 400 mg PO BID #120 tablet 11/18/16 Unknown Rx Multivitamin with Iron 1 each PO DAILY #30 tablet 11/18/16 Unknown Rx [Multivitamins with Iron] hydroCHLOROthiazide [HCTZ] 25 mg PO QDAY #30 tablet 11/18/16 Unknown Rx hydrALAZINE [Apresoline TAB] 25 mg PO Q8HR #90 tab 11/21/16 Unknown Rx Ciprofloxacin 0.3% (Nf) 2.5 ml OP Q2H 7 Days #1 bottle 11/15/17 Unknown Rx [Ciprofloxacin OPTH] Ibuprofen [Motrin] 600 mg PO Q8H PRN #20 tablet 08/25/18 Unknown Rx Ondansetron [Zofran Odt] 4 mg PO Q8HR PRN #20 tab.rapdis 08/25/18 Unknown Rx Tamsulosin [Flomax] 0.4 mg PO QDAY #5 cap 08/25/18 Unknown Rx Allergies Allergy/AdvReac Type Severity Reaction Status Date / Time No Known Allergies Allergy Verified 08/25/18 10:27 ED Review of Systems ROS: Stated complaint: LFT SIDE EXTREME PAIN Other details as noted in HPI Constitutional: denies: chills, fever Eyes: denies: eye pain, eye discharge, vision change ENT: denies: ear pain, throat pain Respiratory: denies: cough, shortness of breath, wheezing Cardiovascular: denies: chest pain, palpitations Endocrine: no symptoms reported Gastrointestinal: nausea, vomiting, other (flank/pelvic pain). denies: abdominal pain, diarrhea Genitourinary: abnormal menses. denies: urgency, dysuria, discharge Musculoskeletal: denies: back pain, joint swelling, arthralgia Skin: denies: rash, lesions Neurological: denies: headache, weakness, paresthesias Psychiatric: denies: anxiety, depression Hematological/Lymphatic: denies: easy bleeding, easy bruising ED Past Medical Hx - Past Medical History Hx Hypertension: Yes Hx Congestive Heart Failure: No Hx Diabetes: No Hx Deep Vein Thrombosis: No Hx Renal Disease: No Hx Sickle Cell Disease: No Hx Seizures: No Hx Asthma: Yes (albuterol PRN) Hx COPD: No Hx HIV: No - Surgical History Past Surgical History?: No - Social History Smoking Status: Never Smoker Substance Use Type: None - Medications Home Medications: Home Medications Medication Instructions Recorded Confirmed Last Taken Type Vitamin 1 tab PO DAILY 11/13/16 11/20/16 Unknown History Acetaminophen 325 mg PO Q6HR #30 capsule 11/18/16 11/20/16 Unknown Rx HYDROcodone/APAP 5-325 [[place] 1 each PO Q6HR PRN #10 tablet 11/18/16 11/20/16 Unknown Rx 5/325] Labetalol [Normodyne TAB] 400 mg PO BID #120 tablet 11/18/16 11/20/16 Unknown Rx Multivitamin with Iron 1 each PO DAILY #30 tablet 11/18/16 11/20/16 Unknown Rx [Multivitamins with Iron] hydroCHLOROthiazide [HCTZ] 25 mg PO QDAY #30 tablet 11/18/16 11/20/16 Unknown Rx hydrALAZINE [Apresoline TAB] 25 mg PO Q8HR #90 tab 11/21/16 Unknown Rx Ciprofloxacin 0.3% (Nf) 2.5 ml OP Q2H 7 Days #1 bottle 11/15/17 Unknown Rx [Ciprofloxacin OPTH] Ibuprofen [Motrin] 600 mg PO Q8H PRN #20 tablet 08/25/18 Unknown Rx Ondansetron [Zofran Odt] 4 mg PO Q8HR PRN #20 tab.rapdis 08/25/18 Unknown Rx Tamsulosin [Flomax] 0.4 mg PO QDAY #5 cap 08/25/18 Unknown Rx ED Physical Exam - General Limitations: No Limitations General appearance: alert, in no apparent distress - Head Head exam: Present: atraumatic, normocephalic - Eye Eye exam: Present: normal appearance - Neck Neck exam: Present: normal inspection, full ROM - Respiratory Respiratory exam: Present: normal lung sounds bilaterally. Absent: respiratory distress, wheezes, rales, rhonchi, stridor, chest wall tenderness, accessory muscle use, decreased breath sounds, prolonged expiratory - Cardiovascular Cardiovascular Exam: Present: regular rate, normal rhythm, normal heart sounds. Absent: bradycardia, tachycardia, irregular rhythm, systolic murmur, diastolic murmur, rubs, gallop - GI/Abdominal GI/Abdominal exam: Present: soft, normal bowel sounds. Absent: distended, tenderness, guarding, rebound, rigid, diminished bowel sounds, hyperactive bowel sounds, hypoactive bowel sounds - Expanded GI/Abdominal Exam Expanded GI/Abdominal exam: Absent: psoas sign, Griffin's sign, Rovsing's sign, tenderness at Mcburney's Point, ascites - Extremities Exam Extremities exam: Present: normal inspection, full ROM - Back Exam Back exam: Present: normal inspection, full ROM, CVA tenderness (L). Absent: tenderness, CVA tenderness (R), muscle spasm, paraspinal tenderness, vertebral tenderness - Neurological Exam Neurological exam: Present: alert, oriented X3 - Psychiatric Psychiatric exam: Present: normal affect, normal mood - Skin Skin exam: Present: warm, dry, intact, normal color. Absent: rash ED Course Vital Signs 08/25/18 08/25/18 08/25/18 10:27 11:45 11:53 Temperature 98.8 F Pulse Rate 89 Respiratory 16 17 15 Rate Blood Pressure 149/53 O2 Sat by Pulse 100 Oximetry - Reevaluation(s) Reevaluation #1: 08/25/18 12:14 Patient is speaking in full sentences with no signs of distress noted. ED Medical Decision Making - Lab Data Result diagrams: 08/25/18 11:44 08/25/18 11:44 - Medical Decision Making This is a 22-year-old female that presents with renal stone. Patient is stable and was examined by me. There is no abdominal tenderness. Negative signs of symptoms of appendicitis. Labs obtained. UA obtained. US'/CT of abdomen/pelvic with doppler obtained and dictated by the radiologist. Patient is notified of the report with no questions noted by the patient. Vital signs are stable prior to discharge. Patient received medical treatment in the ED which patient stated symptoms has resolved and subsided. Mother present at bedside and will drive patient home after discharge due to possible drowsiness of morphine. A by mouth challenge has been obtained and patient tolerated well with no nausea vomiting. Patient was notified of strict precautions of appendicitis symptoms and to return to the ED if symptoms occurs as soon as possible. Patient was also instructed to Follow-up with a primary care doctor in 3-5 days or if symptoms worsen and continue return to emergency room as soon as possible. At time of discharge, the patient does not seem toxic or ill in appearance. No acute signs of distress noted. Patient agrees to discharge treatment plan of care. No further questions noted by the patient. Critical care attestation.: If time is entered above; I have spent that time in minutes in the direct care of this critically ill patient, excluding procedure time. ED Disposition Clinical Impression: Renal stone Disposition: - TO HOME OR SELFCARE Is pt being admited?: No Does the pt Need Aspirin: No Condition: Stable Instructions: Abdominal Pain (ED), Kidney Stones (ED) Additional Instructions: Follow-up with a primary care doctor in 3-5 days or if symptoms worsen and continue return to emergency room as soon as possible. Prescriptions: Ibuprofen [Motrin] 600 mg PO Q8H PRN #20 tablet PRN Reason: Pain Ondansetron [Zofran Odt] 4 mg PO Q8HR PRN #20 tab.rapdis PRN Reason: Nausea Tamsulosin [Flomax] 0.4 mg PO QDAY #5 cap Referrals: CHARAN BOWER MD [Primary Care Provider] - 3-5 Days PRIMARY CARE, [Referring] - 3-5 Days CHEKO AYERS MD [Staff Physician] - 3-[address] [facility] [Outside] - 3-5 Days [facility] [Outside] - 3-5 Days Forms: Work/School Release Form(ED)
--- NOTE | 2018-08-25 12:18 | Cat Scan Report ---
CT ABDOMEN PELVIS WITHOUT CONTRAST: HISTORY: Left flank pain. COMPARISON: none. TECHNIQUE: Helical CT in 1.25mm intervals without IV contrast. Sagittal and coronal reconstructions. FINDINGS: Lung bases: Normal. Liver: Normal. Biliary system: Normal. Pancreas: Normal. Spleen: Normal. Kidneys/ureters/bladder: A 3 mm calculus is identified at the left UVJ. There is minimal left hydronephrosis. No right ureteral stones. A 7 mm calyceal stone is identified in the mid right kidney. There are 2 punctate stones in the mid and inferior left kidney. No obvious renal cyst disease or mass. There is mild left perinephric stranding. The bladder is unremarkable. Adrenal glands: Normal. Aorta: Normal. Intestines: Normal. Appendix: Normal. Pelvic viscera: Normal. Ascites: None. Adenopathy: None. Musculoskeletal: Normal. IMPRESSION: 3 mm calculus at the left UVJ, mildly obstructing. Bilateral renal stones as outlined above.
--- NOTE | 2018-08-25 13:18 | Ultrasound Report ---
FINAL REPORT EXAM: US TRANSVAGINAL HISTORY: pelvic pain TECHNIQUE: Transabdominal and transvaginal pelvic ultrasound. Spectral Doppler analysis performed. PRIORS: None currently available. FINDINGS: Uterus: 7.8 x 3.7 x 4.6 cm. Retroflex. Homogeneous. No distinct lesions. Endometrium: 3 mm. Heterogeneously echogenic. Within normal limits. Right ovary: 3.1 x 2.7 x 4.0 cm. Simple appearing cyst measuring 2.4 cm. Follicular structure. Normal spectral Doppler flow. Left ovary: 3.4 x 2.1 x 1.7 cm. Follicular structure. Normal spectral Doppler flow. No adnexal lesions. Trace fluid in the cul-de-sac. IMPRESSION: Dominant follicular type cysts in the right ovary. Trace free fluid in the cul-de-sac
--- NOTE | 2018-08-25 13:18 | Ultrasound Report ---
FINAL REPORT EXAM: US PELVIS DUPLEX DOPPLER COMP HISTORY: pelvic pain TECHNIQUE: Transabdominal and transvaginal pelvic ultrasound. Spectral Doppler analysis performed. PRIORS: None currently available. FINDINGS: Uterus: 7.8 x 3.7 x 4.6 cm. Retroflex. Homogeneous. No distinct lesions. Endometrium: 3 mm. Heterogeneously echogenic. Within normal limits. Right ovary: 3.1 x 2.7 x 4.0 cm. Simple appearing cyst measuring 2.4 cm. Follicular structure. Normal spectral Doppler flow. Left ovary: 3.4 x 2.1 x 1.7 cm. Follicular structure. Normal spectral Doppler flow. No adnexal lesions. Trace fluid in the cul-de-sac. IMPRESSION: Dominant follicular type cysts in the right ovary. Trace free fluid in the cul-de-sac
[2018-08-25 13:57] VITALS: BP 141/58
== END 2018-08-25 13:56 | disposition home or self-care (01) ==
LOC: ED 10:21
DX: N20.0 Calculus of kidney (principal); R11.2 Nausea with vomiting, unspecified; J45.909 Unspecified asthma, uncomplicated; I10 Essential (primary) hypertension
CPT/HCPCS: 36415; 74176; 76830; 80048; 80076; 81001; 81025; 85025; 93975; 96361; 96374; 96375; 99284; J2270; J2405; J7030